=== PATIENT | female | born 1965 | race Caucasian/White ===

== ENCOUNTER 2018-10-07 16:53 | Inpatient (IN) ==
[2018-10-07 17:17] LABS: Baso # (Auto) 0.1 th/mm3 (0.0-0.2); Baso % (Auto) 1.1 % (0.0-2.0); Eos # (Auto) 0.1 th/mm3 (0.0-0.4); Eos % (Auto) 1.2 % (0.0-4.0); Hematocrit 40.2 % (35.0-46.0); Hemoglobin 14.1 gm/dL (11.6-15.3); Lymph # (Auto) 4.2 th/mm3 (1.0-4.8); Lymph % (Auto) 36.9 % (9.0-44.0); Mean Corpuscular Hemoglobin 33.4 pg (27.0-34.0); Mean Corpuscular Volume 95.5 fL (80.0-100.0); Mean Platelet Volume 7.5 fL (7.0-11.0); Mono # (Auto) 0.9 th/mm3 (0.0-0.9); Mono % (Auto) 7.9 % (0.0-8.0); Neut % (Auto) 52.9 % (16.0-70.0); Platelet Count 333 th/mm3 (150-450); Red Blood Count 4.21 mil/mm3 (4.00-5.30); Red Cell Distribution Width 13.6 % (11.6-17.2); White Blood Count 11.3 th/mm3 (4.0-11.0)
[2018-10-07 17:24] LABS: Activated Partial Thrombo Time 25.7 sec (23.4-31.7)
[2018-10-07 17:36] LABS: Alkaline Phosphatase 107 U/L (45-117); Total Protein 7.4 g/dL (6.4-8.2)
[2018-10-07] MEDS ORDERED: Morphine Inj 4 MG/ML Vial IV.PUSH ONE (17:42)
[2018-10-07 17:48] LABS: Amphetamine Screen,Urine Neg (Neg); Barbiturate Screen,Urine Pos (Neg); Bilirubin,Urine Negative (Negative); Cannabinoid Screen,Urine Neg (Neg); Clarity,Urine Clear (Clear); Cocaine Screen,Urine Neg (Neg); Color,Urine Yellow (Yellw/Straw); Glucose,Urine (UA) Negative (Negative); Leukocyte Esterase,Urine Negative (Negative); Mucus,Urine Few /lpf (Occasional); Nitrite,Urine Negative (Negative); Specific Gravity,Urine 1.013 (1.002-1.035); Squamous Epithelial Cell,Urine <1 /hpf (0-5)
[2018-10-07 17:49] LABS: Opiate Screen,Urine Pos (Neg)
[2018-10-07 18:39] LABS: Alanine Aminotransferase 22 U/L (10-53); Albumin 3.1 g/dL (3.4-5.0); Anion Gap 9 meq/L (5-15); Aspartate Aminotransferase 20 U/L (15-37); Blood Urea Nitrogen 10 mg/dL (7-18); Calcium 7.6 mg/dL (8.5-10.1); Carbon Dioxide 23.5 meq/L (21.0-32.0); Chloride 110 meq/L (98-107); Glomerular Filtration Rate 85 mL/min (>89); Glucose,Random 105 mg/dL (74-106); Magnesium 1.6 mg/dL (1.5-2.5); Potassium 3.1 meq/L (3.5-5.1); Sodium 142 meq/L (136-145)
[2018-10-07] MEDS ORDERED: Haloperidol Inj 5 MG/ML Ampul IM ONE (19:25)
--- NOTE | 2018-10-07 20:09 | XR ---
EXAM DATE: 10/07/2018 8:05 PM EST AGE/SEX: 53 years / Female INDICATIONS: Evaluate lung status. Med reaction. CLINICAL DATA: This is the patient's initial encounter. Patient reports that signs and symptoms have been present for 1 day and indicates a pain score of Nonresponsive. MEDICAL/SURGICAL HISTORY: . Gastric bypass. Spinal stimulator. Right wrist ORIF. COMPARISON: No prior exams available for comparison. FINDINGS: A single AP view of the chest demonstrates the lungs to be symmetrically aerated without evidence of mass, infiltrate or effusion. The cardiomediastinal contours are unremarkable. Osseous structures a re intact. CONCLUSION: No acute findings. Spinal stimulator wires overlie lower thoracic canal. Electronically signed by: Abdelrahman Rebolledo MD 10/07/2018 8:08 PM EST
[2018-10-07] MEDS ORDERED: Ketamine Inj 50 MG/5 ML Syringe IV.PUSH ONE (20:42)
[2018-10-07] MEDS ORDERED: Sod Chloride 0.9% Inj 1,000 ML IV.SIG SCH (20:45)
[2018-10-07] MEDS ORDERED: Propofol 1000 mg/100 ml Inj 1,000 MG/100 ML BOTTLE IV.CONT PRN (21:24)
[2018-10-07] MEDS ORDERED: Etomidate Inj 20 MG/10 ML Ampul IV.PUSH ONE ×2 (21:24→22:07)
[2018-10-07] MEDS ORDERED: Succinylcholine Inj 100 MG/5 ML Syringe IV.PUSH ONE (21:24)
[2018-10-07] MEDS ORDERED: Succinylcholine Inj 200 MG/10 ML Vial ONE (21:31)
[2018-10-07] MEDS ORDERED: fentaNYL 10 mcg/mL Premix Drip 2,500 MCG/250 ML BAG ONE (21:50)
[2018-10-07] MEDS ORDERED: fentaNYL 10 mcg/mL Premix Drip 2,500 MCG/250 ML BAG IV.SIG PRN ×2 (21:50→22:39)
[2018-10-07] MEDS ORDERED: Midazolam 100 MG/100 ML Inj 100 MG/100 ML BAG IV.CONT ONE (22:01)
[2018-10-07] MEDS ORDERED: Midazolam 100 MG/100 ML Inj 100 MG/100 ML BAG IV.CONT PRN ×2 (22:07→22:39)
--- NOTE | 2018-10-07 22:26 | ED ---
HPI General Chief complaint: Altered Mental Status Stated complaint: med reaction/evac Time Seen by Provider: 10/07/18 16:56 Source: family and EMS Mode of arrival: EMS Limitations: altered mental status History of Present Illness HPI narrative: Patient is a 53 year old female who comes in by EMS due to altered mental status. Per EMS, she has a morphine pump and was started on a "new diet pill" that she took for the first time today. EMS states that she took the Naltrexone and soon after started to act unlike herself per family. Patient is altered, unable to answer questions or provide history. Per family, patient has multiple adverse reactions to medications. Daughter states she believes mom is withdrawing from opiates due to the Naltrexone. She says she only has a minimal amount of morphine that goes through her pump. Daughter states that her mother took the pill and about an hour later called saying she just didn't feel well. She says she declined from there to the state she is currently in. Related Data Home Medications Medication Instructions Recorded Confirmed ranitidine HCl [Zantac] 150 mg PO DAILY 08/03/18 10/07/18 bupropion HCl 100 mg PO BID 10/07/18 10/07/18 lylducpsho-obqmczyrdroah-ncwr 1 cap PO Q4H PRN 10/07/18 10/07/18 [Fioricet] naltrexone 25 mg PO DAILY 10/07/18 10/07/18 zolpidem 10 mg PO HS PRN 10/07/18 10/07/18 Allergies Allergy/AdvReac Type Severity Reaction Status Date / Time celecoxib Allergy Intermediate MOUTH Verified 10/07/18 20:19 SWELLING Sulfa (Sulfonamide Allergy Intermediate DIZZY Verified 10/07/18 20:19 Antibiotics) Iodinated Contrast- Oral and Allergy Respiratory Verified 10/07/18 20:20 IV Dye Failure Review of Systems ROS Unobtainable ROS Unobtainable: unobtainable due to mental status PMFSH Medical History Medical History Arm fracture, left (Acute) Chronic back pain (Acute) Degenerative disc disease, thoracic (Acute) Sleep apnea (Acute) Surgical History Surgical History H/O gastric bypass (Acute) History of carpal tunnel surgery of left wrist (Acute) Social History Social History Substance History: Unable to Obtain Second Hand Smoke Exposure: No Smoking Status: Unknown if ever smoked How Often Do You Have a Drink Containing Alcohol: Unable to Obtain Recent Travel in [facility] within the Last 8 Weeks: No Recent Out of Country Travel within the Last 8 Weeks: No Immunization History Tetanus Immunization: Unable to Assess Exam Narrative Exam Narrative: GENERAL: Patient is awake, but does not respond to any external stimuli. She is jerking her hands and legs, writhing in the bed. SKIN: Focused skin assessment warm/dry. HEAD: Atraumatic. Normocephalic. EYES: Pupils equal and round, reactive, large. No scleral icterus. EOMI. ENT: Mucous membranes pink and moist. NECK: Trachea midline. No JVD. CARDIOVASCULAR: Regular rate and rhythm. No murmur appreciated. RESPIRATORY: No accessory muscle use. Clear to auscultation. Breath sounds equal bilaterally. GASTROINTESTINAL: Abdomen soft, non-tender, nondistended. MUSCULOSKELETAL: No obvious deformities. No clubbing. No cyanosis. No edema. NEUROLOGICAL: Awake, but does not respond to any painful or verbal stimuli. Moves all of her extremity. Procedures Intubation Time Out Performed: Yes Sedative: etomidate Mg Given: 20 Paralytic: succinylcholine Mg Given: 100 Laryngoscope: Tray ET Tube Size: 8 ET Tube Uncuffed: Yes Tube Secured Depth (cm): 22 Tube Secured Location: lips Tube Placement Confirmation: visualized tube passing through cords, equal breath sounds bilaterally, no breath sounds over epigastrium and confirmation by capnometry Patient Tolerated Procedure: well and no complications Course Initial Documented Vital Signs Temperature 97.8 F 10/07/18 17:00 Pulse Rate 68 10/07/18 17:00 Respiratory Rate 19 10/07/18 17:00 Blood Pressure 186/119 H 10/07/18 17:00 Pulse Oximetry 100 10/07/18 17:00 Last Documented Vital Signs Temperature 97.8 F 10/07/18 17:00 Pulse Rate 68 10/07/18 17:00 Respiratory Rate 32 H 10/07/18 21:40 Blood Pressure 186/119 H 10/07/18 17:00 Pulse Oximetry 99 10/07/18 21:40 Critical Care Time Critical Care Time: Yes Total Critical Care Time: 60 Attestation: Aggregate critical care time was 60 minutes. Time to perform other separately billable procedures was not included in the critical care time. My time did not include minutes spent treating any other patients simultaneously or on activities that did not directly contribute to the patient's treatment. The services I provided to this patient were to treat and/or prevent clinically significant deterioration that could result in: serious illness or I provided critical care services requiring my management, as noted below: Chart data review, documentation time, medication orders and management, vital sign assessments/reviewing monitor data, ordering and reviewing lab tests, ordering and interpreting/reviewing x-rays and diagnostic studies, care of the patient and discussion of the patient with the admitting physicians. Medical Decision Making MDM Narrative Medical decision making narrative: Patient is a 53 year old female who comes in altered. Per family, the only change has been introduction of Naltrexone, which she took one of, a few hours prior to arrival. She has a morphine pain pump that is presumably still delivering morphine. Patient is writhing in bed, will not follow direction or answer questions. Patient given 1mg Ativan, with no improvement of her writhing or mental status. Family insists patient is withdrawing from opiates. Given another 1mg Ativan and 4mg Morphine with no improvement of her mental status or any sedation. Labs sent show no acute abnormalities to explain her current state. I would like to obtain a CT of her head to rule out any intracranial pathology accounting for her altered state, however, patient continues to writhe around on the stretcher. Given 5mg Haldol, 25mg Benadryl. Patient continued to fight restraints in the bed, writhe around. Given 2 mg Versed, again with no sedation. Decision made to intubate the patient as she remains altered and no medications I have given her have helped or allowed for obtaining CT of her head. Patient intubated without incident. Sedation continues to be difficult. Patient on Versed, Fentanyl, Propofol. Admitted to the ICU. Medical Screen Exam Complete: Yes Emergency Medical Condition: Yes Differential Diagnosis Differential Diagnosis: psychosis vs intoxication vs electrolyte abnormalities vs encephalopathy vs ICH Medical Records Medical records reviewed: Yes I reviewed the patient's medical records. Lab Data Lab results reviewed: Yes I reviewed the patient's lab results. Result diagrams: 10/07/18 17:00 10/07/18 18:00 Lab Results 10/07/18 10/07/18 10/07/18 Range/Units 17:00 17:00 17:11 WBC 11.3 H (4.0-11.0) th/mm3 RBC 4.21 (4.00-5.30) mil/mm3 Hgb 14.1 (11.6-15.3) gm/dL Hct 40.2 (35.0-46.0) % MCV 95.5 (80.0-100.0) fL MCH 33.4 (27.0-34.0) pg MCHC 35.0 (32.0-36.0) % RDW 13.6 (11.6-17.2) % Plt Count 333 (150-450) th/mm3 MPV 7.5 (7.0-11.0) fL Neut % (Auto) 52.9 (16.0-70.0) % Lymph % (Auto) 36.9 (9.0-44.0) % [place] % (Auto) 7.9 (0.0-8.0) % Eos % (Auto) 1.2 (0.0-4.0) % Baso % (Auto) 1.1 (0.0-2.0) % Neut # (Auto) 6.0 (1.8-7.7) th/mm3 Lymph # (Auto) 4.2 (1.0-4.8) th/mm3 [place] # (Auto) 0.9 (0.0-0.9) th/mm3 Eos # (Auto) 0.1 (0.0-0.4) th/mm3 Baso # (Auto) 0.1 (0.0-0.2) th/mm3 WBC Differential . Differential Comment Auto diff final PT 10.0 (9.8-11.6) sec INR 1.0 Ratio APTT 25.7 (23.4-31.7) sec Sodium (136-145) meq/L Potassium (3.5-5.1) meq/L Chloride (98-107) meq/L Carbon Dioxide (21.0-32.0) meq/L Anion Gap (5-15) meq/L BUN (7-18) mg/dL Creatinine (0.50-1.00) mg/dL Estimated GFR (>89) mL/min Random Glucose (74-106) mg/dL Calcium (8.5-10.1) mg/dL Magnesium (1.5-2.5) mg/dL Total Bilirubin (0.2-1.0) mg/dL AST (15-37) U/L ALT (10-53) U/L Alkaline Phosphatase (45-117) U/L Ammonia (11-32) mcmol/L Troponin I (0.02-0.05) ng/mL Total Protein (6.4-8.2) g/dL Albumin (3.4-5.0) g/dL Urine Color (Yellw/Straw) Urine Clarity (Clear) Urine pH (5.0-8.5) Ur Specific [place] (1.002-1.035) Urine Protein (Neg-Trace) mg/dL Urine Glucose (UA) (Negative) mg/dL Urine Ketones (Negative) mg/dL Urine Occult Blood (Negative) Urine Nitrate (Negative) Urine Bilirubin (Negative) Urine Urobilinogen (Less than 2) mg/dL Ur Leukocyte Esterase (Negative) Urine WBC (0-5) /hpf Ur Squamous Epith Cells (0-5) /hpf Urine Mucus (Occasional) /lpf Micro UA Comment Ur Microscopic Review Urine Culture Comments Urine Opiates Screen Pos H (Neg) Ur Barbiturates Screen Pos H (Neg) Ur Amphetamines Screen Neg (Neg) U Benzodiazepines Scrn Neg (Neg) Urine Cocaine Screen Neg (Neg) U Cannabinoids Screen Neg (Neg) Serum Alcohol (0-5) mg/dL 10/07/18 10/07/18 10/07/18 Range/Units 17:11 18:00 18:00 WBC (4.0-11.0) th/mm3 RBC (4.00-5.30) mil/mm3 Hgb (11.6-15.3) gm/dL Hct (35.0-46.0) % MCV (80.0-100.0) fL MCH (27.0-34.0) pg MCHC (32.0-36.0) % RDW (11.6-17.2) % Plt Count (150-450) th/mm3 MPV (7.0-11.0) fL Neut % (Auto) (16.0-70.0) % Lymph % (Auto) (9.0-44.0) % [place] % (Auto) (0.0-8.0) % Eos % (Auto) (0.0-4.0) % Baso % (Auto) (0.0-2.0) % Neut # (Auto) (1.8-7.7) th/mm3 Lymph # (Auto) (1.0-4.8) th/mm3 [place] # (Auto) (0.0-0.9) th/mm3 Eos # (Auto) (0.0-0.4) th/mm3 Baso # (Auto) (0.0-0.2) th/mm3 WBC Differential Differential Comment PT (9.8-11.6) sec INR Ratio APTT (23.4-31.7) sec Sodium 142 (136-145) meq/L Potassium 3.1 L (3.5-5.1) meq/L Chloride 110 H (98-107) meq/L Carbon Dioxide 23.5 (21.0-32.0) meq/L Anion Gap 9 (5-15) meq/L BUN 10 (7-18) mg/dL Creatinine 0.72 (0.50-1.00) mg/dL Estimated GFR 85 L (>89) mL/min Random Glucose 105 (74-106) mg/dL Calcium 7.6 L (8.5-10.1) mg/dL Magnesium 1.6 (1.5-2.5) mg/dL Total Bilirubin 0.4 (0.2-1.0) mg/dL AST 20 (15-37) U/L ALT 22 (10-53) U/L Alkaline Phosphatase 107 (45-117) U/L Ammonia 12 (11-32) mcmol/L Troponin I Less than 0.02 L (0.02-0.05) ng/mL Total Protein 7.4 (6.4-8.2) g/dL Albumin 3.1 L (3.4-5.0) g/dL Urine Color Yellow (Yellw/Straw) Urine Clarity Clear (Clear) Urine pH 6.0 (5.0-8.5) Ur Specific [place] 1.013 (1.002-1.035) Urine Protein Negative (Neg-Trace) mg/dL Urine Glucose (UA) Negative (Negative) mg/dL Urine Ketones Negative (Negative) mg/dL Urine Occult Blood Negative (Negative) Urine Nitrate Negative (Negative) Urine Bilirubin Negative (Negative) Urine Urobilinogen Less than 2 (Less than 2) mg/dL Ur Leukocyte Esterase Negative (Negative) Urine WBC Less than 1 (0-5) /hpf Ur Squamous Epith Cells <1 (0-5) /hpf Urine Mucus Few H (Occasional) /lpf Micro UA Comment Culture not ind Ur Microscopic Review Not Reportable Urine Culture Comments Culture not ind Urine Opiates Screen (Neg) Ur Barbiturates Screen (Neg) Ur Amphetamines Screen (Neg) U Benzodiazepines Scrn (Neg) Urine Cocaine Screen (Neg) U Cannabinoids Screen (Neg) Serum Alcohol Less than 3 (0-5) mg/dL Imaging Data Radiologist's impression: Chest X-Ray 10/07/18 17:00 CONCLUSION: No acute findings. Spinal stimulator wires overlie lower thoracic canal. Discharge Plan Discharge Disposition Patient Disposition: ED Admit(ED Internal Use Only) Discharge Condition Condition: Stable Discharge Order Discharge Orders: ED Use Only Admit Order (Routine); Ordered 10/07/18 Ordered By: Keely Simmons Discharge Details Diagnosis: Altered mental status Physicians Team ED Provider: Keely Simmons Primary Care Provider: Alfonzo Aguirre Attending Provider: Iam Linares Discharge Interventions Interventions: Vital Signs Last Done: 10/07/18 17:00 Status ED Status: Admitted Patient
--- NOTE | 2018-10-07 22:34 | XR ---
EXAM DATE: 10/07/2018 10:32 PM EST AGE/SEX: 53 years / Female INDICATIONS: Status post intubation. CLINICAL DATA: This is the patient's subsequent encounter. Patient reports that signs and symptoms h ave been present for 1 day and indicates a pain score of Nonresponsive. MEDICAL/SURGICAL HISTORY: Non-responsive. Non-responsive. COMPARISON: [facility] [place] 1V SINGLE AP, 10/07/2018. . FINDINGS: A single AP view of the chest demonstrates the lungs to be symmetrically aerated without evidence of mass, infiltrate or effusion. Endotracheal tube 2.2 cm above the negrito. Cardiomegaly The cardiomedi astinal contours are unremarkable. Osseous structures are intact. CONCLUSION: Adequate placement of endotracheal tube. Electronically signed by: Lm Dorantes MD 10/07/2018 10:33 PM EST
[2018-10-07] MEDS ORDERED: Butalbital/APAP/Caff 50/325/40 MG Tablet PO PRN (22:38)
[2018-10-07] MEDS ORDERED: Bisacodyl 10 MG Supp RECTAL PRN (22:39)
--- NOTE | 2018-10-07 22:45 | P.HPCC ---
History of Present Illness Primary Care Physician: Alfonzo Aguirre MD History of Present Illness: 53 year old female comes in by EMS due to altered mental status. Per EMS, she has a morphine pump and was started on a "new diet pill" that she took for the first time today. EMS states that she took the Naltrexone and soon after started to act unlike herself per family. The emergency department the patient was altered and unable to provide any history, became combative and was intubated by ED attending for an airway protection. Per family, patient has multiple adverse reactions to medications. Daughter states she believes mom is withdrawing from opiates due to the Naltrexone. She says she only has a minimal amount of morphine that goes through her pump. Daughter states that her mother took the pill and about an hour later called saying she just didn't feel well. She says she declined from there to the state she is currently in. Inpatient Certification: I certify that the inpatient services were ordered in accordance with Medicare regulations governing the order. This includes certification that hospital inpatient services are reasonable and necessary and in the case of services not specified as inpatient-only under 42 CFR 419.22(n), that they are appropriately provided as inpatient services in accordance to with the 2-midnight benchmark under 43 CFR 412.3(e) Estimated Total Length of Stay (Days): 5 Plans for Post Hospital Care: Not yet determined Review of Systems unobtainable due to endotracheal tube PMFSH - History History Provided By: Contracting Analyst / EMT - Medical History Medical History: Medical History (Last Reviewed 10/07/18 @ 22:24 by Keely Simmons MD) Arm fracture, left Chronic back pain Degenerative disc disease, thoracic Sleep apnea - Surgical History Surgical History: Surgical History (Last Reviewed 10/07/18 @ 22:24 by Keely Simmons MD) H/O gastric bypass History of carpal tunnel surgery of left wrist - Tobacco History Second Hand Smoke Exposure: No Smoking Status: Unknown if ever smoked - Alcohol History How Often Do You Have a Drink Containing Alcohol: Unable to Obtain - Substance Use History Substance History: Unable to Obtain - Travel History Recent Travel in the [place] Within the Last 8 Weeks: No Recent Travel Out of the Country Within the Last 8 Weeks: No - Immunization History Tetanus Immunization: Unable to Assess Medications and Allergies Active Medications: Active Medications Bupropion HCl (Wellbutrin Sr) 100 mg PO BID DAVID Propofol (Diprivan 1000 Mg/100 Ml Inj) 1,000 mg in 100 mls @ 3.552 mls/hr IV.CONT TITRATE PRN; Protocol PRN Reason: Per Protocol Last Admin: 10/07/18 22:28 Dose: 5 mcg/kg/min, 3.55 mls/hr Fentanyl (Fentanyl 10 Mcg/Ml Premix Drip) 2,500 mcg in 250 mls @ 5 mls/hr IV.SIG TITRATE PRN; Protocol PRN Reason: Per Protocol Midazolam HCl (Versed Inj) 100 mg in 100 mls @ 2 mls/hr IV.CONT TITRATE PRN; Protocol PRN Reason: See protocol Non-Formulary Medication (Majnhgmvdj-Yrcfcudvuqdrx-Ajop [Fioricet]) 1 cap PO Q4H PRN PRN Reason: Migraine Headache Sodium Chloride (Ns Flush) 2 ml IV.FLUSH PRN PRN PRN Reason: FLUSH AFTER USING IV ACCESS Last Admin: 10/07/18 17:07 Dose: 2 ml Allergies Allergy/AdvReac Type Severity Reaction Status Date / Time celecoxib Allergy Intermediate MOUTH Verified 10/07/18 20:19 SWELLING Sulfa (Sulfonamide Allergy Intermediate DIZZY Verified 10/07/18 20:19 Antibiotics) Iodinated Contrast- Oral and Allergy Respiratory Verified 10/07/18 20:20 IV Dye Failure Home Medications Medication Instructions Recorded Confirmed Type ranitidine HCl [Zantac] 150 mg PO DAILY 08/03/18 10/07/18 History bupropion HCl 100 mg PO BID 10/07/18 10/07/18 History jqkwwnvhdn-fwniufwdhjfrv-lkfs 1 cap PO Q4H PRN 10/07/18 10/07/18 History [Fioricet] naltrexone 25 mg PO DAILY 10/07/18 10/07/18 History zolpidem 10 mg PO HS PRN 10/07/18 10/07/18 History Results - Labs CBC & Chem 7: 10/07/18 17:00 10/07/18 18:00 Labs: Short CBC 10/07/18 Range/Units 17:00 WBC 11.3 H (4.0-11.0) th/mm3 Hgb 14.1 (11.6-15.3) gm/dL Hct 40.2 (35.0-46.0) % Plt Count 333 (150-450) th/mm3 BMP 10/07/18 18:00 Sodium 142 Potassium 3.1 L Chloride 110 H Carbon Dioxide 23.5 BUN 10 Creatinine 0.72 Calcium 7.6 L Cardiac Enzymes 10/07/18 Range/Units 18:00 Troponin I Less than 0.02 L (0.02-0.05) ng/mL Liver Function 10/07/18 Range/Units 18:00 Total Bilirubin 0.4 (0.2-1.0) mg/dL AST 20 (15-37) U/L ALT 22 (10-53) U/L Alkaline Phosphatase 107 (45-117) U/L Albumin 3.1 L (3.4-5.0) g/dL Urine 10/07/18 Range/Units 17:11 Urine Color Yellow (Yellw/Straw) Urine Clarity Clear (Clear) Urine pH 6.0 (5.0-8.5) Ur Specific [place] 1.013 (1.002-1.035) Urine Protein Negative (Neg-Trace) mg/dL Urine Glucose (UA) Negative (Negative) mg/dL - Imaging Impressions Chest X-Ray 10/07/18 17:00 CONCLUSION: No acute findings. Spinal stimulator wires overlie lower thoracic canal. Chest X-Ray 10/07/18 21:44 CONCLUSION: Adequate placement of endotracheal tube. Head CT 10/08/18 00:00 CONCLUSION: No acute intracranial findings. . Exam Vital signs: Vital Signs 10/07/18 17:00 10/07/18 21:40 Temperature 97.8 F Pulse Rate 68 Respiratory Rate 19 32 H Blood Pressure 186/119 H Pulse Oximetry 100 99 Intake & Output 10/07/18 10/07/18 10/08/18 06:59 18:59 06:59 Weight 118.388 kg - Constitutional severe distress, morbidly obese - Routine HEENT Exam Head: Present: normocephalic, atraumatic Eye: Present: PERRL, normal accommodation ENT: Present: mucous membranes moist - Routine Neck Exam Absent: JVD, carotid bruit - Routine Respiratory Exam Present: patient mechanically ventilated. Absent: rales, rhonchi - Routine Cardiovascular Exam Present: RRR, S1, S2 - Routine Abdominal Exam Present: soft, normoactive bowel sounds - Routine Extremities Exam Absent: cyanosis, clubbing - Routine Skin Exam Present: intact. Absent: cyanosis, erythema - Routine Neurological Exam Present: altered mental status, moving all extremities Septic Shock Reassessment Septic shock perfusion: reassessment completed Caprini VTE Risk Assessment Caprini VTE Risk Assessment: Moderate/High Risk (score >= 2) Caprini Risk Assessment Model: Point Value = 1 Point Value = 2 Point Value = 3 Point Value = 5 Age 41-60 Minor surgery BMI > 25 kg/m2 Swollen legs Varicose veins or History of unexplained or recurrent spontaneous Oral contraceptives or hormone replacement Sepsis (< 1 month) Serious lung disease, including pneumonia (< 1 month) Abnormal pulmonary function Acute myocardial infarction Congestive heart failure (< 1 month) History of inflammatory bowel disease Medical patient at bed rest Age 61-74 Arthroscopic surgery Major open surgery (> 45 min) Laparoscopic surgery (> 45 min) Malignancy Confined to bed (> 72 hours) Immobilizing plaster cast Central venous access Age >= 75 History of VTE Family history of VTE Factor V Leiden Prothrombin [id number] Lupus anticoagulant Anticardiolipin antibodies Elevated serum homocysteine Heparin-induced thrombocytopenia Other congenital or acquired thrombophilia Stroke (< 1 month) Elective arthroplasty Hip, pelvis, or leg fracture Acute spinal cord injury (< 1 month) Prophylaxis Regimen: Total Risk Factor Score Risk Level Prophylaxis Regimen 0-1 Low Early ambulation 2 Moderate Order ONE of the following: *Sequential Compression Device (SCD) *Heparin 5000 units SQ BID 3-4 Higher Order ONE of the following medications: *Heparin 5000 units SQ TID *Enoxaparin/Lovenox 40 mg SQ daily (WT < 150 kg, CrCl > 30 mL/min) *Enoxaparin/Lovenox 30 mg SQ daily (WT < 150 kg, CrCl > 10-29 mL/min) *Enoxaparin/Lovenox 30 mg SQ BID (WT < 150 kg, CrCl > 30 mL/min) AND/OR *Sequential Compression Device (SCD) 5 or more Highest Order ONE of the following medications: *Heparin 5000 units SQ TID (Preferred with Epidurals) *Enoxaparin/Lovenox 40 mg SQ daily (WT < 150 kg, CrCl > 30 mL/min) *Enoxaparin/Lovenox 30 mg SQ daily (WT < 150 kg, CrCl > 10-29 mL/min) *Enoxaparin/Lovenox 30 mg SQ BID (WT < 150 kg, CrCl > 30 mL/min) AND *Sequential Compression Device (SCD) Assessment and Plan - Assessment and Plan Plan: Respiratory failure -Intubated for airway protection -SBT daily extubated and neurologically improved -Vent bundle -DuoNeb's as needed Altered mental status -CT head negative -Possible reaction to new medication naltrexone -Neuro checks per unit protocol -Consider neurology consultation if no improvement Opioid dependence -Continue fentanyl drip -Continue morphine pump per home regimen -Monitor for withdrawal Sleep apnea -Not an issue while intubated -CPAP overnight when extubated DVT GI prophylaxis -Teds SCDs -Subcu heparin -Pepcid 35 minutes of critical care
[2018-10-07 22:56] LABS: ABG Base Excess -4.4 mmol/L (-2-2); ABG PCO2 30 mmHg (38-42); ABG PO2 74 mmHg (61-120)
[2018-10-07] MEDS: Heparin - SQ 10,000 UNITS/ML Vial SQ SCH (23:26)
[2018-10-07] MEDS: Sod Chloride 0.9% Inj 1,000 ML IV.CONT SCH (23:28)
[2018-10-07 23:45] LABS: ABG Base Excess 1.5 mmol/L (-2-2); ABG PCO2 32 mmHg (38-42); ABG PO2 182 mmHg (61-120)
--- NOTE | 2018-10-08 00:21 | CT ---
EXAM DATE: 10/08/2018 12:11 AM EST AGE/SEX: 53 years / Female INDICATIONS: Altered mental status. CLINICAL DATA: This is the patient's initial encounter. Patient reports that signs and symptoms have been present for 1 day and indicates a pain score of Nonresponsive. MEDICAL/SURGICAL HISTORY: Seizures. None. RADIATION DOSE: 56.35 CTDI (mGy) COMPARISON: No prior exams available for comparison. TECHNIQUE: CT of the head without contrast. Using automated exposure control and adjustment of the mA and/or kV according to patient size, radiation dose was kept as low as reasonably achievable to ob tain optimal diagnostic quality images. DICOM format image data is available electronically for revi ew and comparison. FINDINGS: Cerebrum: The ventricles are normal for age. No evidence of midline shift, mass lesion, hemorrhage or acute infarction. No extraaxial fluid collections are seen. Posterior Fossa: The cerebellum and brainstem are intact. The 4th ventricle is midline. The cerebe llopontine angle is unremarkable. Extracranial: Mild mucosal thickening of the ethmoid sinuses. Skull: The calvaria is intact. No evidence of skull fracture. Chronic appearing bone defect in the right mastoid region. CONCLUSION: No acute intracranial findings. . Electronically signed by: Satnam Almanza MD 10/08/2018 12:19 AM EST
[2018-10-08] MEDS ORDERED: Sodium Phosphate Inj 30 MMOL in Sodium Chlor 0.9% Inj 250 ML IV.SIG PRN (01:17)
[2018-10-08] MEDS ORDERED: Potassium Phosphate Inj 30 MMOL in Sodium Chlor 0.9% Inj 250 ML IV.SIG PRN (01:17)
[2018-10-08] MEDS ORDERED: Magnesium Oxide 400 MG Tablet PO PRN (01:17)
[2018-10-08] MEDS ORDERED: Potassium Chlor 20 mEq Premix 20 MEQ/100 ML PIGGYBACK IV.SIG PRN (01:17)
[2018-10-08] MEDS ORDERED: Potassium Phosphate 500 MG Soluble Tablet PO PRN ×2 (01:17)
[2018-10-08] MEDS ORDERED: Potassium Chloride 25 MEQ Effervescent Tablet PO PRN (01:17)
[2018-10-08] MEDS ORDERED: Magnesium Sulfate Inj 2 GM in Sodium Chlor 0.9% Inj 96 ML IV.SIG PRN (01:17)
[2018-10-08] MEDS ORDERED: Magnesium Sulfate Inj 4 GM in Sodium Chlor 0.9% Inj 92 ML IV.SIG PRN (01:17)
[2018-10-08] MEDS ORDERED: Potassium Chlor 40 mEq Premix 40 MEQ/100 ML PIGGYBACK IV.SIG PRN ×2 (01:17)
[2018-10-08] MEDS: Oral Hygiene Kit OROPHARYNG SCH ×4 (01:18→19:43)
[2018-10-08] MEDS: Propofol 1000 mg/100 ml Inj 1,000 MG/100 ML BOTTLE IV.CONT PRN ×5 (01:44→17:09)
[2018-10-08] MEDS: Potassium Chlor 20 mEq Premix 20 MEQ/100 ML PIGGYBACK IV.SIG PRN ×4 (01:45→08:22)
[2018-10-08] MEDS ORDERED: Chlorhexidine Gluconate 2% 1 Pack (2 Cloths) TOPICAL PRN (04:00)
[2018-10-08] MEDS: Chlorhexidine Gluconate 2% 1 Pack (2 Cloths) TOPICAL SCH (05:23)
[2018-10-08] MEDS: Heparin - SQ 10,000 UNITS/ML Vial SQ SCH ×3 (05:24→22:14)
[2018-10-08] MEDS ORDERED: Dextrose 50% in Water 50 ML Vial IV.PUSH PRN (07:16)
--- NOTE | 2018-10-08 07:19 | P.PNCC ---
Subjective Subjective Remarks/Hospital Course: 53 year old female comes in by EMS due to altered mental status. Per EMS, she has a morphine pump and was started on a "new diet pill" that she took for the first time today. EMS states that she took the Naltrexone and soon after started to act unlike herself per family. The emergency department the patient was altered and unable to provide any history, became combative and was intubated by ED attending for an airway protection. Per family, patient has multiple adverse reactions to medications. Daughter states she believes mom is withdrawing from opiates due to the Naltrexone. She says she only has a minimal amount of morphine that goes through her pump. Daughter states that her mother took the pill and about an hour later called saying she just didn't feel well. She says she declined from there to the state she is currently in. SUBJECTIVE: 10/08: Patient seen and examined. Currently on propofol drip at 50 mcg/kg/min, midazolam drip at 10 mg an hour and fentanyl drip at 100 mg an hour. Withdraws only on the ventilator. Pupils do react. Will attempt sedation vacation same. In interim. Initiate tube feeding will check EEG. Noted CT brain negative. Unable to do MRI brain secondary to spinal stimulator wires Objective Vital Signs / I&O: Vital Signs 10/07/18 17:00 10/07/18 20:00 10/07/18 21:40 Temperature 97.8 F Pulse Rate 68 Respiratory Rate 19 32 H Blood Pressure 186/119 H Pulse Oximetry 100 100 99 10/07/18 22:40 10/07/18 23:39 10/08/18 00:00 Temperature Pulse Rate 82 82 Respiratory Rate 16 16 Blood Pressure 118/71 152/69 H Pulse Oximetry 100 10/08/18 00:20 10/08/18 00:21 10/08/18 00:28 Temperature 100 F H Pulse Rate 82 76 Respiratory Rate 26 H 29 H 41 H Blood Pressure 169/72 H Pulse Oximetry 98 99 10/08/18 00:30 10/08/18 01:00 10/08/18 01:30 Temperature Pulse Rate 76 80 74 Respiratory Rate 31 H 26 H 27 H Blood Pressure 170/73 H 152/73 H 153/88 H Pulse Oximetry 100 100 100 10/08/18 02:00 10/08/18 02:30 10/08/18 03:00 Temperature Pulse Rate 77 79 79 Respiratory Rate 26 H 26 H 24 Blood Pressure 152/70 H 143/72 H 159/73 H Pulse Oximetry 100 100 100 10/08/18 03:30 10/08/18 04:00 10/08/18 04:30 Temperature Pulse Rate 82 82 Respiratory Rate 28 H 28 H 20 Blood Pressure 156/75 H 168/75 H Pulse Oximetry 100 100 100 10/08/18 04:31 10/08/18 05:00 10/08/18 05:01 Temperature Pulse Rate 79 81 86 Respiratory Rate 35 H 35 H 37 H Blood Pressure 185/75 H 160/73 H Pulse Oximetry 100 98 100 10/08/18 05:30 10/08/18 06:00 Temperature Pulse Rate 84 85 Respiratory Rate 31 H 26 H Blood Pressure 168/77 H 159/77 H Pulse Oximetry 96 100 Intake & Output 10/07/18 10/08/18 10/08/18 18:59 06:59 18:59 Intake Total 1500 / 1500 Output Total 2600 / 2600 Balance -1100 / -1100 Weight 118.388 kg 108.6 kg Intake: IV 1500 / 1500 Diprivan 1000 mg/100 ml Inj 1, 300 / 300 000 mg In 100 ml @ 5 MCG/KG/MIN 3.552 mls/hr IV.CONT TITRATE PRN Rx#:[id number] KCl 20 mEq Premix Inj 20 meq In 200 / 200 100 ml @ 50 mls/hr IV.SIG Q2H PRN Rx#:[id number] NS Inj 1,000 ML @ 1000 mls/hr 1000 / 1000 IV.SIG BOLUS DAVID Rx#:[id number] Oral 0 / 0 Output: Urine Amount (Catheter) 2600 / 2600 Indwelling Urethral Catheter 2600 / 2600 Other: Date of Last Bowel Movement 10/08/18 Weight On Admission 102.5 kg Result Diagrams: 10/07/18 17:00 10/07/18 18:00 Imaging: Chest X-Ray 10/07/18 17:00 CONCLUSION: No acute findings. Spinal stimulator wires overlie lower thoracic canal. Chest X-Ray 10/07/18 21:44 CONCLUSION: Adequate placement of endotracheal tube. Head CT 10/08/18 00:00 CONCLUSION: No acute intracranial findings. . Objective Remarks: GENERAL: 53-year-old female currently orotracheally intubated SKIN: Warm and dry. No rash HEAD: Atraumatic. Normocephalic. EYES: Pupils equal and round. No scleral icterus. No injection or drainage. ENT: No nasal bleeding or discharge. Mucous membranes pink and moist. NECK: Trachea midline. No JVD. CARDIOVASCULAR: Regular rate and rhythm. S1, S2. No S4. RESPIRATORY: Diminished breath sounds throughout. No wheezing GASTROINTESTINAL: Abdomen soft, non-tender, obese. Hypoactive bowel sounds appreciated. MUSCULOSKELETAL: Extremities without nonpitting bilateral lower extremity edema. No obvious deformities. NEUROLOGICAL: Currently sedated on the ventilator. Positive gag and cough. Positive corneal reflex. Withdraws to pain all 4 extremity's. Assessment and Plan - Assessment and Plan Plan: Neuro/Psych: Acute encephalopathy unknown etiology Depression/anxiety Insomnia Migraine headaches Spinal stimulator/morphine pump for chronic thoracic DDD/low back pain Patient has a morphine pump in place Patient is on naltrexone 20 mg daily at home.. This is Patient is on bupropion 100 mg twice daily. Continue. Patient is on butalbital/acetaminophen/caffeine 1 tablet every 4 hours as needed Holding zolpidem 10 mg at night for insomnia. CT brain on admission revealed no acute intracranial findings CV: Essential hypertension Initial troponin 0.02. EKG unremarkable As needed labetalol, hydralazine Nitropaste for hypertension Resp: Acute respiratory failure Obstructive sleep apnea PRVC Ventilation bundle Head of bed at 30 degrees Albuterol/ipratropium aerosols every 4 hours with albuterol aerosols every 2 as needed dyspnea Follow-up on a.m. chest x-ray Spontaneous breathing trial/CPAP trials when clinically indicated Chest x-ray cardiopulmonary findings GI: History of gastric bypass Gastroesophageal reflux disease Will start tube feedings with vital 1.5 goal 55 cc an hour Lansoprazole for GI prophylaxis. Patient is on ranitidine 150 mg daily at home Docusate serum/senna 1 tablet twice daily for bowel regimen : Straight catheterization as needed. Okay to remove Olivas catheter. Periwick might be an alternative Endo: Check TSH Aspart low regimen every 6 hours sliding scale insulin Accu-Cheks to maintain euglycemia Renal: Creatinine currently within normal limits Monitor urine output Accurate I's and O's Heme: Leukocytosis Monitor CBC daily. Follow trends. No indication for transfusion of blood products at this time ID: Blood cultures x2, sputum and UA pending. Influenza a and B pending FEN: Hypokalemia/acute Replace electrolytes as clinically indicated per ICU likely protocol Recheck a.m. laboratories all pending MSK: Chronic low back pain Elevated BMI of 39.9 PT evaluate and treat Weight loss encouraged Access -Utilize peripheral IV. Central line if indicated Prophylaxis -GI -lansoprazole -DVT -SCD/heparin subcu Level 3 follow-up Code Status: Full code Discussed Condition With: RN. No family available. Care plan discussed all questions answered
[2018-10-08] MEDS ORDERED: Labetalol HCl Inj 100 MG/20 ML Vial IV.PUSH PRN (07:26)
[2018-10-08] MEDS ORDERED: hydrALAZINE HCl Inj 20 MG/ML Vial IV.PUSH PRN (07:27)
[2018-10-08 08:11] LABS: Baso % (Auto) 0.5 % (0.0-2.0); Eos # (Auto) 0.1 th/mm3 (0.0-0.4); Hematocrit 40.7 % (35.0-46.0); Hemoglobin 13.7 gm/dL (11.6-15.3); Lymph # (Auto) 2.3 th/mm3 (1.0-4.8); Lymph % (Auto) 22.4 % (9.0-44.0); Mean Corpuscular HGB Conc 33.6 % (32.0-36.0); Mean Corpuscular Hemoglobin 31.8 pg (27.0-34.0); Mean Corpuscular Volume 94.6 fL (80.0-100.0); Mean Platelet Volume 7.2 fL (7.0-11.0); Mono # (Auto) 0.9 th/mm3 (0.0-0.9); Mono % (Auto) 8.4 % (0.0-8.0); Neut # (Auto) 7.1 th/mm3 (1.8-7.7); Neut % (Auto) 67.7 % (16.0-70.0); Platelet Count 284 th/mm3 (150-450); White Blood Count 10.4 th/mm3 (4.0-11.0)
[2018-10-08] MEDS: Senna/Docusate Sodium 8.6/50 MG Tablet PO SCH ×2 (08:20→20:03)
[2018-10-08] MEDS: Artificial Tears Opth Drops 15 ML Bottle EACH EYE SCH ×2 (08:20→19:44)
[2018-10-08] MEDS: buPROPion 100 MG ER 12 HR Tablet PO SCH ×2 (08:20→20:04)
[2018-10-08 08:21] LABS: Activated Partial Thrombo Time 27.6 sec (23.4-31.7); Prothrombin Time 10.6 sec (9.8-11.6)
[2018-10-08] MEDS: Chlorhexidine 0.12% Oral Kit 15 ML UDC OROPHARYNG SCH ×2 (08:21→20:03)
[2018-10-08 08:43] LABS: Alanine Aminotransferase 27 U/L (10-53); Albumin 3.1 g/dL (3.4-5.0); Alkaline Phosphatase 104 U/L (45-117); Anion Gap 8 meq/L (5-15); Aspartate Aminotransferase 37 U/L (15-37); Blood Urea Nitrogen 5 mg/dL (7-18); Calcium 8.5 mg/dL (8.5-10.1); Carbon Dioxide 25.8 meq/L (21.0-32.0); Chloride 109 meq/L (98-107); Glomerular Filtration Rate 80 mL/min (>89); Glucose,Random 92 mg/dL (74-106); Magnesium 1.9 mg/dL (1.5-2.5); Phosphorus 2.3 mg/dL (2.5-4.9); Potassium 3.9 meq/L (3.5-5.1); Sodium 143 meq/L (136-145); Total Protein 6.6 g/dL (6.4-8.2)
[2018-10-08] MEDS ORDERED: Famotidine PF Inj 20 MG/2 ML Vial IV.PUSH SCH (09:00)
[2018-10-08] MEDS: Insulin NovoLOG Aspart Correctional Sugar Inj SQ SCH ×2 (12:03→19:43)
--- NOTE | 2018-10-08 16:02 | P.DIET ---
Nutritional Evaluation Type of nutrition evaluation: initial Nutrition consult regarding: Tube Feeding Screening comments: 10/08 TF review Objective - Diagnosis AMS - Objective Body Mass Index: 39.9 % IBW: 191 (IBW = 125lb) Body Weight Used for Calculations: IBW Energy Needs - Lower Range (kCal/kg): 28 Energy Needs - Upper Range (kCal/kg): 32 Lower Limit kCal/kg (kCals): 1,591 Upper Limit kCal/kg (kCals): 1,818 Lower Limit Protein Factor (Grams per Kg): 1.2 Upper Limit Protein Factor (Grams per Kg): 1.4 Lower Protein Needs (Protein): 68 Upper Protein Needs (Protein): 80 Dietitian Reviewed in Medical Record: Curent medications, Intake & Output, Labs , Medical history, Tube feeding Diet Order: TF'ing Objective Comments: PMH: degenerative disc disease, h/o gastric bypass, ORIF left distal radius 03/14 Meds: fentanyl, novolog insulin, versed, propofol Labs: Phos 2.3 LBM 10/08 Assessment Assessment: Pt currently intubated, sedated (w/ fentanyl, versed, propofol), and on mech vent. Pt currently receiving Vital 1.5 @ 55mL/hr per MD. RD to recommend Vital 1.5 @ 50mL/hr to provide 1800kcal, 81g of protein, 917mL of free water to best meet pts nutritional needs. Additional kcal (1.1kcal/mL) provided by propofol when running. Continue to monitor TF tolerance. Labs reviewed, dietitian following. Recommendations: 1. RD to recommend Vital 1.5 @ 50mL/hr to best meet pts nutritional needs 2. Additional kcal (1.1kcal/mL) provided by propofol when running 3. Continue to monitor TF tolerance 4. Dietitian following Dietitian to Monitor: Lab values, Intake & Output, Tube feeding tolerance, Medical course
--- NOTE | 2018-10-08 17:52 | MG ---
cc: Gurdeep Graf MD EEG NUMBER: [id number] This is a 53-year-old woman with change in mental status. Morphine pump, chronic back pain, fentanyl, Diprivan. Diffuse beta rhythms are noted consistent with benzodiazepine use. They are prominent in bilateral. No hemisphere asymmetries are noted. Some underlying delta slowing may be seen diffusely. No epileptiform or seizure activity is noted. Hyperventilation not performed. Photic stimulation is performed without significant posterior driving. IMPRESSION: Diffuse beta rhythms which would be consistent with likely medication effect. No focal abnormalities noted. No seizure activity. Gurdeep Graf MD DJM/ct , 05:16 PM , 05:20 PM
[2018-10-08] MEDS: Acetaminophen 325 MG Tablet PO PRN (20:04)
[2018-10-08] MEDS: Sod Chloride 0.9% Inj 1,000 ML IV.CONT SCH ×2 (20:40→22:14)
--- NOTE | 2018-10-08 22:08 | ECG ---
Date Performed: 10/07/2018 Time Performed: 22:56:06 PTAGE: 53 years EKG: Sinus rhythm NORMAL ECG PREVIOUS TRACING : 07/29/2012 09.20 Since the previous tracing, no significant change noted DOCTOR: Sunil Beltran Interpretating Date/Time 10/08/2018 22:07:06
[2018-10-09] MEDS: Oral Hygiene Kit OROPHARYNG SCH ×5 (00:14→23:41)
[2018-10-09] MEDS: Insulin NovoLOG Aspart Correctional Sugar Inj SQ SCH ×5 (00:14→23:41)
[2018-10-09] MEDS: Artificial Tears Opth Drops 15 ML Bottle EACH EYE SCH ×3 (00:14→17:12)
[2018-10-09] MEDS: Propofol 1000 mg/100 ml Inj 1,000 MG/100 ML BOTTLE IV.CONT PRN ×3 (01:07→23:59)
[2018-10-09] MEDS: Chlorhexidine Gluconate 2% 1 Pack (2 Cloths) TOPICAL SCH (04:06)
[2018-10-09] MEDS: Acetaminophen 325 MG Tablet PO PRN (04:06)
--- NOTE | 2018-10-09 05:04 | XR ---
EXAM DATE: 10/09/2018 4:43 AM EST AGE/SEX: 53 years / Female INDICATIONS: Shortness of breath, possible pulmonary disease. CLINICAL DATA: This is the patient's subsequent encounter. Patient reports that signs and symptoms h ave been present for 3 days and indicates a pain score of Nonresponsive. MEDICAL/SURGICAL HISTORY: Non-responsive. Non-responsive. COMPARISON: C, CHEST 1V SINGLE AP, 10/07/2018. . FINDINGS: Single AP view the chest. Endotracheal tube remains in place. Nasogastric tube is now seen with the t ip below the [id number] of the radiograph. Neural stimulator leads are seen in the thoracic spine. Central pulmonary vascular congestion. Mild atelectasis at the lung bases. CONCLUSION: 1. Central pulmonary vascular congestion and mild bilateral atelectasis. 2. Nasogastric tube now in place. Electronically signed by: Satnam Almanza MD 10/09/2018 5:02 AM EST
[2018-10-09] MEDS: Heparin - SQ 10,000 UNITS/ML Vial SQ SCH ×3 (05:25→21:52)
[2018-10-09 07:03] LABS: Baso % (Auto) 0.1 % (0.0-2.0); Eos % (Auto) 0.4 % (0.0-4.0); Hematocrit 39.7 % (35.0-46.0); Hemoglobin 13.6 gm/dL (11.6-15.3); Lymph # (Auto) 1.5 th/mm3 (1.0-4.8); Lymph % (Auto) 11.5 % (9.0-44.0); Mean Corpuscular HGB Conc 34.3 % (32.0-36.0); Mean Corpuscular Hemoglobin 32.2 pg (27.0-34.0); Mean Corpuscular Volume 93.7 fL (80.0-100.0); Mean Platelet Volume 7.9 fL (7.0-11.0); Mono % (Auto) 7.5 % (0.0-8.0); Neut # (Auto) 10.7 th/mm3 (1.8-7.7); Neut % (Auto) 80.5 % (16.0-70.0); Platelet Count 251 th/mm3 (150-450); Red Blood Count 4.23 mil/mm3 (4.00-5.30); Red Cell Distribution Width 13.6 % (11.6-17.2); White Blood Count 13.3 th/mm3 (4.0-11.0)
[2018-10-09 07:34] LABS: Albumin 2.6 g/dL (3.4-5.0); Anion Gap 7 meq/L (5-15); Aspartate Aminotransferase 27 U/L (15-37); Blood Urea Nitrogen 6 mg/dL (7-18); Calcium 7.9 mg/dL (8.5-10.1); Chloride 110 meq/L (98-107); Glomerular Filtration Rate 86 mL/min (>89); Glucose,Random 137 mg/dL (74-106); Magnesium 1.9 mg/dL (1.5-2.5); Potassium 3.6 meq/L (3.5-5.1); Sodium 143 meq/L (136-145)
[2018-10-09 07:46] LABS: Alanine Aminotransferase 23 U/L (10-53); Alkaline Phosphatase 96 U/L (45-117); Phosphorus 3.3 mg/dL (2.5-4.9); Thyroid Stimulating Hormone 0.493 uIU/mL (0.358-3.740); Total Protein 6.4 g/dL (6.4-8.2)
[2018-10-09] MEDS: Sod Chloride 0.9% Inj 1,000 ML IV.CONT SCH ×3 (08:00→21:52)
[2018-10-09] MEDS: Senna/Docusate Sodium 8.6/50 MG Tablet PO SCH ×2 (08:01→20:15)
[2018-10-09] MEDS: buPROPion 100 MG ER 12 HR Tablet PO SCH ×2 (08:01→20:15)
[2018-10-09] MEDS: Chlorhexidine 0.12% Oral Kit 15 ML UDC OROPHARYNG SCH ×2 (08:01→20:15)
[2018-10-09] MEDS ORDERED: Mag Sulf 1 gm/100 ml Premix 100 ML IV.SIG ONE (09:00)
[2018-10-09] MEDS ORDERED: Vancomycin Consult Pharmacy OTHER PRN (09:00)
--- NOTE | 2018-10-09 09:09 | P.PNCC ---
Subjective Subjective Remarks/Hospital Course: 53 year old female comes in by EMS due to altered mental status. Per EMS, she has a morphine pump and was started on a "new diet pill" that she took for the first time today. EMS states that she took the Naltrexone and soon after started to act unlike herself per family. The emergency department the patient was altered and unable to provide any history, became combative and was intubated by ED attending for an airway protection. Per family, patient has multiple adverse reactions to medications. Daughter states she believes mom is withdrawing from opiates due to the Naltrexone. She says she only has a minimal amount of morphine that goes through her pump. Daughter states that her mother took the pill and about an hour later called saying she just didn't feel well. She says she declined from there to the state she is currently in. 10/08: Patient seen and examined. Currently on propofol drip at 50 mcg/kg/min, midazolam drip at 10 mg an hour and fentanyl drip at 100 mg an hour. Withdraws only on the ventilator. Pupils do react. Will attempt sedation vacation same. In interim. Initiate tube feeding will check EEG. Noted CT brain negative. Unable to do MRI brain secondary to spinal stimulator wires SUBJECTIVE: 10/09: T-max 102.4. Creatinine 1.8. Copious thick secretions awake today and following commands. Will try spontaneous breathing trials with attempt extubate.. Start of piperacillin/tazobactam and vancomycin Objective Vital Signs / I&O: Vital Signs 10/08/18 09:00 10/08/18 09:39 10/08/18 10:00 Temperature Pulse Rate 85 80 82 Respiratory Rate 16 16 21 Blood Pressure 144/73 H 147/82 H 158/74 H Pulse Oximetry 100 100 100 10/08/18 10:30 10/08/18 11:00 10/08/18 12:00 Temperature Pulse Rate 84 79 82 Respiratory Rate 25 H 22 16 Blood Pressure 155/88 H 164/68 H 134/81 Pulse Oximetry 100 100 100 10/08/18 12:06 10/08/18 12:08 10/08/18 12:30 Temperature 99.4 F Pulse Rate 84 83 Respiratory Rate 16 16 Blood Pressure 141/79 H Pulse Oximetry 100 100 10/08/18 13:00 10/08/18 13:30 10/08/18 14:00 Temperature Pulse Rate 87 80 79 Respiratory Rate 24 16 16 Blood Pressure 152/73 H 150/82 H 145/67 H Pulse Oximetry 100 100 100 10/08/18 14:30 10/08/18 15:00 10/08/18 15:30 Temperature Pulse Rate 81 80 73 Respiratory Rate 21 16 16 Blood Pressure 147/80 H 150/75 H 143/69 H Pulse Oximetry 100 100 100 10/08/18 16:00 10/08/18 16:06 10/08/18 16:30 Temperature Pulse Rate 79 94 H Respiratory Rate 16 16 20 Blood Pressure 150/67 H 144/75 H Pulse Oximetry 100 100 100 10/08/18 17:00 10/08/18 17:14 10/08/18 17:30 Temperature Pulse Rate 87 83 90 Respiratory Rate 21 21 Blood Pressure 145/69 H 154/76 H Pulse Oximetry 100 100 10/08/18 18:00 10/08/18 18:30 10/08/18 19:00 Temperature Pulse Rate 83 85 79 Respiratory Rate 17 20 23 Blood Pressure 145/83 H 148/65 H 150/75 H Pulse Oximetry 100 100 100 10/08/18 19:30 10/08/18 20:00 10/08/18 20:30 Temperature 102.4 F H Pulse Rate 95 H 88 96 H Respiratory Rate 31 H 18 21 Blood Pressure 147/67 H 149/70 H 135/70 Pulse Oximetry 100 100 100 10/08/18 20:45 10/08/18 20:53 10/08/18 21:00 Temperature Pulse Rate 98 H 99 H Respiratory Rate 16 16 17 Blood Pressure 125/63 Pulse Oximetry 100 99 10/08/18 21:30 10/08/18 22:00 10/08/18 22:30 Temperature Pulse Rate 100 H 83 90 Respiratory Rate 17 16 17 Blood Pressure 135/68 138/69 137/76 Pulse Oximetry 100 100 100 10/08/18 23:00 10/08/18 23:30 10/08/18 23:57 Temperature Pulse Rate 79 77 74 Respiratory Rate 16 16 16 Blood Pressure 147/70 H 144/70 H Pulse Oximetry 100 100 10/09/18 00:00 10/09/18 00:14 10/09/18 00:30 Temperature 100.9 F H Pulse Rate 75 97 H Respiratory Rate 16 16 21 Blood Pressure 151/67 H 145/81 H Pulse Oximetry 100 100 100 10/09/18 01:00 10/09/18 01:30 10/09/18 02:00 Temperature Pulse Rate 103 H 92 H 89 Respiratory Rate 31 H 24 17 Blood Pressure 148/73 H 141/71 H 135/75 Pulse Oximetry 82 L 100 100 10/09/18 02:30 10/09/18 03:00 10/09/18 03:30 Temperature Pulse Rate 80 87 79 Respiratory Rate 17 17 16 Blood Pressure 145/66 H 140/85 145/69 H Pulse Oximetry 100 100 100 10/09/18 04:00 10/09/18 04:18 10/09/18 04:19 Temperature 101.8 F H Pulse Rate 81 84 Respiratory Rate 16 20 20 Blood Pressure 147/67 H Pulse Oximetry 100 100 10/09/18 04:30 10/09/18 05:00 10/09/18 05:30 Temperature Pulse Rate 89 84 85 Respiratory Rate 24 16 17 Blood Pressure 133/80 136/64 136/65 Pulse Oximetry 100 100 100 10/09/18 06:00 10/09/18 07:00 10/09/18 07:30 Temperature 99.8 F H Pulse Rate 83 82 88 Respiratory Rate 18 16 17 Blood Pressure 131/81 147/65 H 139/71 Pulse Oximetry 100 99 100 10/09/18 08:00 10/09/18 08:24 10/09/18 08:30 Temperature Pulse Rate 84 87 85 Respiratory Rate 16 12 14 Blood Pressure 136/65 140/65 Pulse Oximetry 100 100 100 Intake & Output 10/08/18 10/09/18 10/09/18 18:59 06:59 18:59 Intake Total 400 / 400 2038 / 2038 1000 / 1000 Output Total 1400 / 1400 1100 / 1100 Balance -1000 / -1000 938 / 938 1000 / 1000 Weight 108.8 kg Intake: IV 400 / 400 1260 / 1260 1000 / 1000 Versed Inj 100 mg In 100 ml @ 2 10 / 10 MG/HR 2 mls/hr IV.CONT TITRATE PRN Rx#:[id number] Diprivan 1000 mg/100 ml Inj 1, 200 / 200 100 / 100 000 mg In 100 ml @ 5 MCG/KG/MIN 3.552 mls/hr IV.CONT TITRATE PRN Rx#:[id number] NS Inj 1,000 ML @ 84 mls/hr IV. 1000 / 1000 1000 / 1000 CONT .[id number] [facility] Rx#:[id number] KCl 20 mEq Premix Inj 20 meq In 200 / 200 100 ml @ 50 mls/hr IV.SIG Q2H PRN Rx#:[id number] fentaNYL 10 mcg/mL Premix Drip 100 / 100 2,500 mcg In 250 ml @ 50 MCG/HR 5 mls/hr IV.SIG TITRATE PRN Rx #:[id number] Tube Feeding 578 / 578 Tube Irrigant 200 / 200 Output: Urine Amount (Catheter) 1400 / 1400 1100 / 1100 Indwelling Urethral Catheter 1400 / 1400 1100 / 1100 Other: Date of Last Bowel Movement 10/08/18 10/09/18 # Bowel Movements 1 Result Diagrams: 10/09/18 06:03 10/09/18 06:03 Other Results: Microbiology 10/08/18 08:40 Nasal Aspirate Influenza Types A,B Antigen - Final Negative for FLU A and B antigen Infection due to influenza A or B cannot be ruled out since the antigen present in the sample may be below the detection limit of the test. Imaging: Chest X-Ray 10/07/18 17:00 CONCLUSION: No acute findings. Spinal stimulator wires overlie lower thoracic canal. Chest X-Ray 10/07/18 21:44 CONCLUSION: Adequate placement of endotracheal tube. Head CT 10/08/18 00:00 CONCLUSION: No acute intracranial findings. . Chest X-Ray 10/09/18 06:00 CONCLUSION: 1. Central pulmonary vascular congestion and mild bilateral atelectasis. 2. Nasogastric tube now in place. Objective Remarks: GENERAL: 53-year-old female currently orotracheally intubated SKIN: Warm and dry. No rash HEAD: Atraumatic. Normocephalic. EYES: Pupils equal and round. No scleral icterus. No injection or drainage. ENT: No nasal bleeding or discharge. Mucous membranes pink and moist. NECK: Trachea midline. No JVD. CARDIOVASCULAR: Regular rate and rhythm. S1, S2. No S4. RESPIRATORY: Diminished breath sounds throughout. No wheezing GASTROINTESTINAL: Abdomen soft, non-tender, obese. Hypoactive bowel sounds appreciated. MUSCULOSKELETAL: Extremities without nonpitting bilateral lower extremity edema. No obvious deformities. NEUROLOGICAL: Currently arousable on the ventilator. Positive gag and cough. Positive corneal reflex. Withdraws to pain all 4 extremity's. Assessment and Plan - Assessment and Plan Plan: Neuro/Psych: Acute encephalopathy unknown etiology Depression/anxiety Insomnia Migraine headaches Spinal stimulator/morphine pump for chronic thoracic DDD/low back pain Patient has a morphine pump in place Patient is on naltrexone 20 mg daily at home.. This is Patient is on bupropion 100 mg twice daily. Continue. Patient is on butalbital/acetaminophen/caffeine 1 tablet every 4 hours as needed Holding zolpidem 10 mg at night for insomnia. CT brain on admission revealed no acute intracranial findings Weaning off fentanyl and Versed drips. Daily sedation vacation CV: Essential hypertension Initial troponin 0.02. EKG unremarkable As needed labetalol, hydralazine Nitropaste for hypertension Resp: Acute respiratory failure Obstructive sleep apnea PRVC Ventilation bundle Head of bed at 30 degrees Albuterol/ipratropium aerosols every 4 hours with albuterol aerosols every 2 as needed dyspnea Follow-up on a.m. chest x-ray Spontaneous breathing trial/CPAP trials when clinically indicated Chest x-ray cardiopulmonary findings GI: History of gastric bypass Gastroesophageal reflux disease Continue tube feedings with vital 1.5 goal 55 cc an hour Lansoprazole for GI prophylaxis. Patient is on ranitidine 150 mg daily at home Docusate serum/senna 1 tablet twice daily for bowel regimen : Straight catheterization as needed. Okay to remove Olivas catheter. Periwick might be an alternative Endo: Check TSH -0.4 Aspart low regimen every 6 hours sliding scale insulin Accu-Cheks to maintain euglycemia Renal: Creatinine currently within normal limits Monitor urine output Accurate I's and O's Heme: Leukocytosis Monitor CBC daily. Follow trends. No indication for transfusion of blood products at this time ID: Blood cultures x2, sputum and UA pending. Influenza a and B negative Currently on piperacillin/tazobactam vancomycin day #1 FEN: Replace electrolytes as clinically indicated per ICU likely protocol Recheck a.m. laboratories MSK: Chronic low back pain Elevated BMI of 40 PT evaluate and treat Weight loss encouraged Access -Utilize peripheral IV. Central line if indicated Prophylaxis -GI -lansoprazole -DVT -SCD/heparin subcu Level 3 follow-up Code Status: Full code
[2018-10-09] MEDS ORDERED: Potassium Chloride 25 MEQ Effervescent Tablet PO ONE (09:15)
[2018-10-09] MEDS: Piperacil/Tazo 4.5 GM Premix 4.5 GM/100 ML BAG IV.SIG SCH ×3 (09:24→21:52)
[2018-10-09] MEDS: Vancomycin Inj 1,750 MG in Sodium Chlor 0.9% Inj 500 ML IV.SIG SCH ×2 (12:29→23:38)
[2018-10-09 15:32] LABS: Bacteria,Urine Many /hpf; Bilirubin,Urine Negative (Negative); Clarity,Urine Cloudy (Clear); Color,Urine Yellow (Yellw/Straw); Glucose,Urine (UA) Negative (Negative); Leukocyte Esterase,Urine Moderate (Negative); Mucus,Urine Few /lpf (Occasional); Nitrite,Urine Negative (Negative); Squamous Epithelial Cell,Urine 1 /hpf (0-5)
--- NOTE | 2018-10-09 17:41 | US ---
EXAM DATE: 10/09/2018 5:33 PM EST AGE/SEX: 53 years / Female INDICATIONS: Left leg swelling. CLINICAL DATA: This is the patient's initial encounter. Patient reports that signs and symptoms have been present for 1 day and indicates a pain score of 0/10. MEDICAL/SURGICAL HISTORY: . Left arm fracture. Chronic back pain. Degenerative disc disease, th oracic. Sleep Apnea. Gastric bypass. Left Carpal tunnel Surgery. COMPARISON: No prior exams available for comparison. TECHNIQUE: Venous ultrasound of both lower extremities was performed from the inguinal ligament to t he proximal calf. Real-time, color Doppler and spectral tracing, compression and augmentation techni ques were used. FINDINGS: Normal compression of the deep venous system from the inguinal region to the proximal calf . No echogenic clot is seen. Normal response of the venous system to augmentation and respiration. CONCLUSION: 1. No evidence of DVT. Electronically signed by: Tonio Zamora MD Board Certified Radiologist 10/09/2018 5:40 PM EST
[2018-10-09] MEDS: Carbamide Peroxide 6.5% Otic Drops 15 ML Bottle EACH EAR SCH (20:14)
[2018-10-10] MEDS: Artificial Tears Opth Drops 15 ML Bottle EACH EYE SCH ×3 (01:55→17:49)
[2018-10-10] MEDS: Chlorhexidine Gluconate 2% 1 Pack (2 Cloths) TOPICAL SCH (03:28)
[2018-10-10] MEDS: Piperacil/Tazo 4.5 GM Premix 4.5 GM/100 ML BAG IV.SIG SCH ×4 (03:28→22:00)
[2018-10-10] MEDS: Oral Hygiene Kit OROPHARYNG SCH ×3 (03:28→15:27)
[2018-10-10] MEDS: Propofol 1000 mg/100 ml Inj 1,000 MG/100 ML BOTTLE IV.CONT PRN (05:53)
[2018-10-10] MEDS: Insulin NovoLOG Aspart Correctional Sugar Inj SQ SCH ×3 (05:53→18:21)
[2018-10-10] MEDS: Heparin - SQ 10,000 UNITS/ML Vial SQ SCH ×3 (05:53→22:00)
[2018-10-10 07:39] LABS: Baso % (Auto) 0.1 % (0.0-2.0); Hemoglobin 12.1 gm/dL (11.6-15.3); Lymph # (Auto) 0.8 th/mm3 (1.0-4.8); Lymph % (Auto) 5.9 % (9.0-44.0); Mean Corpuscular HGB Conc 35.6 % (32.0-36.0); Mean Corpuscular Hemoglobin 33.3 pg (27.0-34.0); Mean Corpuscular Volume 93.6 fL (80.0-100.0); Mean Platelet Volume 7.7 fL (7.0-11.0); Mono # (Auto) 0.6 th/mm3 (0.0-0.9); Mono % (Auto) 4.9 % (0.0-8.0); Neut # (Auto) 11.6 th/mm3 (1.8-7.7); Neut % (Auto) 89.1 % (16.0-70.0); Platelet Count 219 th/mm3 (150-450); Red Blood Count 3.63 mil/mm3 (4.00-5.30); Red Cell Distribution Width 13.4 % (11.6-17.2)
[2018-10-10 08:02] LABS: Albumin 2.3 g/dL (3.4-5.0); Anion Gap 7 meq/L (5-15); Aspartate Aminotransferase 15 U/L (15-37); Blood Urea Nitrogen 11 mg/dL (7-18); Calcium 7.8 mg/dL (8.5-10.1); Carbon Dioxide 24.5 meq/L (21.0-32.0); Chloride 111 meq/L (98-107); Glomerular Filtration Rate Greater Than 89 mL/min (>89); Glucose,Random 136 mg/dL (74-106); Magnesium 2.2 mg/dL (1.5-2.5); Sodium 142 meq/L (136-145)
[2018-10-10 08:04] LABS: Alanine Aminotransferase 21 U/L (10-53); Alkaline Phosphatase 85 U/L (45-117); Total Protein 6.2 g/dL (6.4-8.2)
[2018-10-10] MEDS: buPROPion 100 MG ER 12 HR Tablet PO SCH ×2 (08:32→22:00)
[2018-10-10] MEDS: Senna/Docusate Sodium 8.6/50 MG Tablet PO SCH ×2 (08:55→22:00)
[2018-10-10] MEDS: Chlorhexidine 0.12% Oral Kit 15 ML UDC OROPHARYNG SCH ×2 (08:56→21:59)
[2018-10-10] MEDS: Carbamide Peroxide 6.5% Otic Drops 15 ML Bottle EACH EAR SCH ×2 (08:56→22:00)
[2018-10-10] MEDS ORDERED: Midazolam Inj 5 MG/ML 1 ML Vial IV.PUSH ONE (09:06)
--- NOTE | 2018-10-10 09:11 | P.PNCC ---
Subjective Subjective Remarks/Hospital Course: 53 year old female comes in by EMS due to altered mental status. Per EMS, she has a morphine pump and was started on a "new diet pill" that she took for the first time today. EMS states that she took the Naltrexone and soon after started to act unlike herself per family. The emergency department the patient was altered and unable to provide any history, became combative and was intubated by ED attending for an airway protection. Per family, patient has multiple adverse reactions to medications. Daughter states she believes mom is withdrawing from opiates due to the Naltrexone. She says she only has a minimal amount of morphine that goes through her pump. Daughter states that her mother took the pill and about an hour later called saying she just didn't feel well. She says she declined from there to the state she is currently in. 10/08: Patient seen and examined. Currently on propofol drip at 50 mcg/kg/min, midazolam drip at 10 mg an hour and fentanyl drip at 100 mg an hour. Withdraws only on the ventilator. Pupils do react. Will attempt sedation vacation same. In interim. Initiate tube feeding will check EEG. Noted CT brain negative. Unable to do MRI brain secondary to spinal stimulator wires 10/09: T-max 102.4. Creatinine 1.8. Copious thick secretions awake today and following commands. Will try spontaneous breathing trials with attempt extubate.. Start of piperacillin/tazobactam and vancomycin SUBJECTIVE: 10/10: T-max 100.5. Currently 99. No cuff leak but will attempt extubation today. Received dexamethasone times 24 hours. Arousable and follows commands. Objective Vital Signs / I&O: Vital Signs 10/09/18 09:17 10/09/18 09:30 10/09/18 10:00 Temperature Pulse Rate 84 96 H 103 H Respiratory Rate 20 17 Blood Pressure 148/78 H 134/69 Pulse Oximetry 100 100 10/09/18 10:30 10/09/18 11:00 10/09/18 11:30 Temperature Pulse Rate 84 88 86 Respiratory Rate 26 H 18 26 H Blood Pressure 139/65 143/65 H 140/64 Pulse Oximetry 100 100 100 10/09/18 11:58 10/09/18 12:00 10/09/18 12:30 Temperature 100.1 F H Pulse Rate 83 81 101 H Respiratory Rate 26 H 27 H 22 Blood Pressure 143/66 H 146/69 H Pulse Oximetry 99 100 100 10/09/18 13:00 10/09/18 13:30 10/09/18 14:00 Temperature Pulse Rate 92 H 100 H 90 Respiratory Rate 27 H 24 25 H Blood Pressure 139/69 151/72 H 137/63 Pulse Oximetry 100 100 100 10/09/18 14:32 10/09/18 15:00 10/09/18 15:05 Temperature Pulse Rate 88 84 75 Respiratory Rate 23 24 17 Blood Pressure 127/58 L 125/56 L Pulse Oximetry 100 100 98 10/09/18 15:09 10/09/18 15:30 10/09/18 16:00 Temperature Pulse Rate 76 78 79 Respiratory Rate Blood Pressure 129/58 L 127/60 Pulse Oximetry 98 95 10/09/18 16:31 10/09/18 17:00 10/09/18 17:06 Temperature 98.8 F Pulse Rate 78 74 73 Respiratory Rate Blood Pressure 112/53 L 120/63 Pulse Oximetry 96 96 10/09/18 17:30 10/09/18 18:00 10/09/18 18:30 Temperature Pulse Rate 80 72 73 Respiratory Rate 18 21 Blood Pressure 124/72 122/56 L 120/57 L Pulse Oximetry 95 94 L 94 L 10/09/18 19:00 10/09/18 19:30 10/09/18 20:00 Temperature 99.3 F Pulse Rate 72 70 68 Respiratory Rate 22 21 33 H Blood Pressure 118/56 L 117/56 L 111/55 L Pulse Oximetry 94 L 93 L 94 L 10/09/18 20:30 10/09/18 20:48 10/09/18 20:50 Temperature Pulse Rate 68 67 Respiratory Rate 46 H 16 16 Blood Pressure 113/75 Pulse Oximetry 96 96 10/09/18 21:00 10/09/18 21:01 10/09/18 21:31 Temperature Pulse Rate 68 70 76 Respiratory Rate 36 H 16 16 Blood Pressure 154/62 H 104/65 Pulse Oximetry 94 L 94 L 93 L 10/09/18 22:00 10/09/18 22:30 10/09/18 23:00 Temperature Pulse Rate 80 87 83 Respiratory Rate 16 24 18 Blood Pressure 108/61 121/66 129/61 Pulse Oximetry 93 L 100 98 10/09/18 23:23 10/09/18 23:30 10/10/18 00:00 Temperature 98.3 F Pulse Rate 94 H 88 91 H Respiratory Rate 18 18 32 H Blood Pressure 132/58 L 116/55 L Pulse Oximetry 96 95 10/10/18 00:30 10/10/18 01:00 10/10/18 01:05 Temperature Pulse Rate 84 80 Respiratory Rate 37 H 41 H 18 Blood Pressure 112/55 L 112/55 L Pulse Oximetry 93 L 94 L 96 10/10/18 01:30 10/10/18 02:00 10/10/18 02:30 Temperature Pulse Rate 69 66 61 Respiratory Rate 33 H 24 23 Blood Pressure 119/56 L 120/56 L 123/58 L Pulse Oximetry 94 L 94 L 94 L 10/10/18 03:00 10/10/18 03:30 10/10/18 04:00 Temperature 98.5 F Pulse Rate 62 67 67 Respiratory Rate 20 17 20 Blood Pressure 124/58 L 129/60 127/58 L Pulse Oximetry 94 L 95 95 10/10/18 04:10 10/10/18 04:11 10/10/18 04:50 Temperature Pulse Rate 64 84 Respiratory Rate 16 16 23 Blood Pressure 133/59 L Pulse Oximetry 95 100 10/10/18 05:00 10/10/18 05:01 10/10/18 05:30 Temperature Pulse Rate 104 H 98 H 92 H Respiratory Rate 29 H 27 H 25 H Blood Pressure 169/69 H 150/87 H Pulse Oximetry 100 98 96 10/10/18 06:00 10/10/18 07:00 10/10/18 08:00 Temperature Pulse Rate 88 64 Respiratory Rate 24 18 11 L Blood Pressure 148/67 H Pulse Oximetry 96 96 Intake & Output 10/09/18 10/10/18 10/10/18 18:59 06:59 18:59 Intake Total 1817.5 / 1817.5 2817.5 / 2817.5 Output Total 1101 / 1101 400 / 400 Balance 716.5 / 716.5 2417.5 / 2417.5 Weight 107 kg Intake: IV 1817.5 / 1817.5 2617.5 / 2617.5 Diprivan 1000 mg/100 ml Inj 1, 200 / 200 000 mg In 100 ml @ 5 MCG/KG/MIN 3.552 mls/hr IV.CONT TITRATE PRN Rx#:[id number] NS Inj 1,000 ML @ 84 mls/hr IV. 1000 / 1000 1700 / 1700 CONT .[id number] [facility] Rx#:[id number] Magnesium Sulfate 1 gm/D5W 100 100 / 100 ml Premix 100 ML @ 100 mls/hr IV.SIG ONCE ONE Rx#:[id number] Zosyn 4.5 GM Premix 4.5 gm In 200 / 200 200 / 200 100 ml @ 200 mls/hr IV.SIG Q6H [facility] Rx#:[id number] Vancomycin Inj 1,750 MG In NS 517.5 / 517.5 517.5 / 517.5 Inj 500 ML @ 250 mls/hr IV.SIG Q12H [facility] Rx#:[id number] Water Bolus Amount 200 / 200 Output: Urine/Stool Mix 1 / 1 Urine Amount (Catheter) 1100 / 1100 400 / 400 Indwelling Urethral Catheter 1100 / 1100 400 / 400 Other: Date of Last Bowel Movement 10/09/18 10/09/18 # Bowel Movements 0 Result Diagrams: 10/10/18 07:15 10/10/18 07:15 Other Results: Microbiology 10/08/18 08:40 Sputum - Endotracheal Gram Stain - Final 10/08/18 08:40 Sputum - Endotracheal Sputum Culture - Preliminary Heavy growth normal respiratory august at 24 hours 10/08/18 11:52 Blood - Peripheral Aerobic Blood Culture - Preliminary No growth in 1 day 10/08/18 11:52 Blood - Peripheral Anaerobic Blood Culture - Preliminary No growth in 1 day 10/08/18 09:41 Blood - Peripheral Aerobic Blood Culture - Preliminary No growth in 1 day 10/08/18 09:41 Blood - Peripheral Anaerobic Blood Culture - Preliminary No growth in 1 day 10/08/18 08:40 Nasal Aspirate Influenza Types A,B Antigen - Final Negative for FLU A and B antigen Infection due to influenza A or B cannot be ruled out since the antigen present in the sample may be below the detection limit of the test. Imaging: Chest X-Ray 10/07/18 17:00 CONCLUSION: No acute findings. Spinal stimulator wires overlie lower thoracic canal. Chest X-Ray 10/07/18 21:44 CONCLUSION: Adequate placement of endotracheal tube. Head CT 10/08/18 00:00 CONCLUSION: No acute intracranial findings. . Venous Doppler Study 10/09/18 00:00 CONCLUSION: 1. No evidence of DVT. Chest X-Ray 10/09/18 06:00 CONCLUSION: 1. Central pulmonary vascular congestion and mild bilateral atelectasis. 2. Nasogastric tube now in place. Objective Remarks: GENERAL: 53-year-old female currently orotracheally intubated SKIN: Warm and dry. No rash HEAD: Atraumatic. Normocephalic. EYES: Pupils equal and round. No scleral icterus. No injection or drainage. ENT: No nasal bleeding or discharge. Mucous membranes pink and moist. NECK: Trachea midline. No JVD. CARDIOVASCULAR: Regular rate and rhythm. S1, S2. No S4. No murmur. Distant heart sounds RESPIRATORY: Diminished breath sounds throughout. No wheezing GASTROINTESTINAL: Abdomen soft, non-tender, obese. Hypoactive bowel sounds appreciated. MUSCULOSKELETAL: Extremities without nonpitting bilateral lower extremity edema. No obvious deformities. NEUROLOGICAL: Currently arousable on the ventilator. Positive gag and cough. Positive corneal reflex. Withdraws to pain all 4 extremity's. Assessment and Plan - Assessment and Plan Plan: Neuro/Psych: Acute encephalopathy unknown etiology Depression/anxiety Insomnia Migraine headaches Spinal stimulator/morphine pump for chronic thoracic DDD/low back pain Patient has a morphine pump in place Patient is on naltrexone 20 mg daily at home.. This is really on hold Patient is on bupropion 100 mg times daily. Continue Patient is on butalbital/acetaminophen/caffeine 1 tablet every 4 hours as needed Holding zolpidem 10 mg at night for insomnia. CT brain on admission revealed no acute intracranial findings Weaning off fentanyl and Versed drips. Attempt extubate today Daily sedation vacation CV: Essential hypertension Initial troponin 0.02. EKG unremarkable As needed labetalol, hydralazine Nitropaste for hypertension Resp: Acute respiratory failure Obstructive sleep apnea PRVC Ventilation bundle Head of bed at 30 degrees Albuterol/ipratropium aerosols every 4 hours with albuterol aerosols every 2 as needed dyspnea Follow-up on a.m. chest x-ray 10/11 Spontaneous breathing trial/CPAP trials when clinically indicated Chest x-ray cardiopulmonary findings GI: History of gastric bypass Gastroesophageal reflux disease Hypoalbuminemia Continue tube feedings with vital 1.5 goal 55 cc an hour Lansoprazole for GI prophylaxis. Patient is on ranitidine 150 mg daily at home Docusate serum/senna 1 tablet twice daily for bowel regimen : Straight catheterization as needed. Okay to remove Olivas catheter. Periwick might be an alternative Endo: Check TSH -0.4 9 3 Aspart low regimen every 6 hours sliding scale insulin Accu-Cheks to maintain euglycemia Renal: Creatinine currently within normal limits Monitor urine output Accurate I's and O's Heme: Leukocytosis Monitor CBC daily. Follow trends. No indication for transfusion of blood products at this time ID: Blood cultures x2, sputum and UA / no growth to date Influenza a and B negative Currently on piperacillin/tazobactam vancomycin day #2 FEN: Replace electrolytes as clinically indicated per ICU likely protocol Recheck a.m. laboratories MSK: Chronic low back pain Elevated BMI of 40 PT evaluate and treat Weight loss encouraged Access -Utilize peripheral IV. Central line if indicated Prophylaxis -GI -lansoprazole -DVT -SCD/heparin subcu Level 3 follow-up Dexamethasone 4 mg IV every 8 hours with history of tracheal ostomy. Will no cuff leak with excellent parameters will attempt extubate to patient with bedside glide scope and medications
[2018-10-10] MEDS ORDERED: RESP: Lidocaine 4% 4 ML Neb Kit NEB PRN (10:17)
[2018-10-10] MEDS ORDERED: Phenol 1.4% 180 ML Spray Bottle OROPHARYNG PRN (10:20)
[2018-10-10] MEDS: Vancomycin Inj 1,750 MG in Sodium Chlor 0.9% Inj 500 ML IV.SIG SCH ×2 (11:12→23:00)
[2018-10-10] MEDS: Sod Chloride 0.9% Inj 1,000 ML IV.CONT SCH ×2 (13:46→14:34)
[2018-10-10] MEDS: Acetaminophen 325 MG Tablet PO PRN (16:49)
[2018-10-11] MEDS: Artificial Tears Opth Drops 15 ML Bottle EACH EYE SCH (01:00)
[2018-10-11] MEDS: Chlorhexidine Gluconate 2% 1 Pack (2 Cloths) TOPICAL SCH (04:00)
--- NOTE | 2018-10-11 04:12 | XR ---
EXAM DATE: 10/11/2018 3:49 AM EST AGE/SEX: 53 years / Female INDICATIONS: Shortness of breath, possible pulmonary disease. CLINICAL DATA: This is the patient's subsequent encounter. Patient reports that signs and symptoms h ave been present for 4 - 6 days and indicates a pain score of Nonresponsive. MEDICAL/SURGICAL HISTORY: . Sleep apnea. Gastric bypass. COMPARISON: [facility], CHEST 1V SINGLE AP, 10/09/2018. . FINDINGS: The heart size is normal. There is increased density seen at the medial right base and to a lesser de gree at the lateral left base. Mid and upper lungs are clear. No effusions are seen. Spinal leads are seen in the lower thoracic spine. CONCLUSION: Bibasilar areas of consolidation or atelectasis being worse on the right. Electronically signed by: Devonte Mendieta MD Board Certified Radiologist 10/11/2018 4:11 AM EST
[2018-10-11 05:03] LABS: Baso % (Auto) 0.1 % (0.0-2.0); Hematocrit 35.3 % (35.0-46.0); Hemoglobin 11.9 gm/dL (11.6-15.3); Lymph # (Auto) 1.2 th/mm3 (1.0-4.8); Lymph % (Auto) 8.7 % (9.0-44.0); Mean Corpuscular HGB Conc 33.8 % (32.0-36.0); Mean Corpuscular Hemoglobin 32.1 pg (27.0-34.0); Mean Platelet Volume 7.8 fL (7.0-11.0); Mono % (Auto) 7.4 % (0.0-8.0); Neut # (Auto) 11.1 th/mm3 (1.8-7.7); Neut % (Auto) 83.8 % (16.0-70.0); Platelet Count 221 th/mm3 (150-450); Red Blood Count 3.71 mil/mm3 (4.00-5.30); Red Cell Distribution Width 13.3 % (11.6-17.2); White Blood Count 13.2 th/mm3 (4.0-11.0)
[2018-10-11 05:27] LABS: Calcium 8.2 mg/dL (8.5-10.1); Carbon Dioxide 24.4 meq/L (21.0-32.0); Magnesium 2.1 mg/dL (1.5-2.5); Potassium 3.7 meq/L (3.5-5.1)
[2018-10-11 05:30] LABS: Phosphorus 2.1 mg/dL (2.5-4.9)
[2018-10-11] MEDS: Sod Chloride 0.9% Inj 1,000 ML IV.CONT SCH (06:56)
[2018-10-11] MEDS: Oral Hygiene Kit OROPHARYNG SCH ×4 (06:57→15:58)
[2018-10-11] MEDS: Insulin NovoLOG Aspart Correctional Sugar Inj SQ SCH ×4 (06:57→18:09)
--- NOTE | 2018-10-11 07:26 | P.PNCC ---
Subjective Subjective Remarks/Hospital Course: 53 year old female comes in by EMS due to altered mental status. Per EMS, she has a morphine pump and was started on a "new diet pill" that she took for the first time today. EMS states that she took the Naltrexone and soon after started to act unlike herself per family. The emergency department the patient was altered and unable to provide any history, became combative and was intubated by ED attending for an airway protection. Per family, patient has multiple adverse reactions to medications. Daughter states she believes mom is withdrawing from opiates due to the Naltrexone. She says she only has a minimal amount of morphine that goes through her pump. Daughter states that her mother took the pill and about an hour later called saying she just didn't feel well. She says she declined from there to the state she is currently in. 10/08: Patient seen and examined. Currently on propofol drip at 50 mcg/kg/min, midazolam drip at 10 mg an hour and fentanyl drip at 100 mg an hour. Withdraws only on the ventilator. Pupils do react. Will attempt sedation vacation same. In interim. Initiate tube feeding will check EEG. Noted CT brain negative. Unable to do MRI brain secondary to spinal stimulator wires 10/09: T-max 102.4. Creatinine 1.8. Copious thick secretions awake today and following commands. Will try spontaneous breathing trials with attempt extubate.. Start of piperacillin/tazobactam and vancomycin 10/10: T-max 100.5. Currently 99. No cuff leak but will attempt extubation today. Received dexamethasone times 24 hours. Arousable and follows commands. SUBJECTIVE: 10/11: Afebrile. Extubated yesterday without complication. On 2 L nasal cannula. Tolerating diet. Okay to transfer to floor today. Objective Vital Signs / I&O: Vital Signs 10/10/18 08:00 10/10/18 09:00 10/10/18 10:00 Temperature Pulse Rate 54 L 75 85 Respiratory Rate 20 20 18 Blood Pressure 141/65 H 140/62 141/64 H Pulse Oximetry 96 97 98 10/10/18 11:00 10/10/18 12:00 10/10/18 13:00 Temperature 98.3 F Pulse Rate 72 95 H 99 H Respiratory Rate 18 17 18 Blood Pressure 149/67 H 133/60 151/65 H Pulse Oximetry 98 95 97 10/10/18 14:00 10/10/18 14:22 10/10/18 15:00 Temperature Pulse Rate 60 69 115 H Respiratory Rate 18 18 17 Blood Pressure 180/76 H 123/58 L Pulse Oximetry 98 96 10/10/18 16:00 10/10/18 17:00 10/10/18 18:00 Temperature Pulse Rate 103 H 103 H 70 Respiratory Rate 18 18 18 Blood Pressure 132/60 151/65 H 167/72 H Pulse Oximetry 98 95 94 L 10/10/18 20:06 10/10/18 23:43 Temperature Pulse Rate 76 67 Respiratory Rate 20 18 Blood Pressure Pulse Oximetry 96 Intake & Output 10/10/18 10/11/18 10/11/18 18:59 06:59 18:59 Intake Total 1817.5 / 1817.5 1000 / 1000 Output Total 450 / 450 Balance 1367.5 / 1367.5 1000 / 1000 Intake: IV 1717.5 / 1717.5 1000 / 1000 NS Inj 1,000 ML @ 84 mls/hr IV. 1000 / 1000 1000 / 1000 CONT .[id number] [facility] Rx#:[id number] Zosyn 4.5 GM Premix 4.5 gm In 200 / 200 100 ml @ 200 mls/hr IV.SIG Q6H [facility] Rx#:[id number] Vancomycin Inj 1,750 MG In NS 517.5 / 517.5 Inj 500 ML @ 250 mls/hr IV.SIG Q12H [facility] Rx#:[id number] Oral 100 / 100 Output: Urine Amount (Catheter) 450 / 450 Indwelling Urethral Catheter 450 / 450 Other: Date of Last Bowel Movement 10/09/18 # Bowel Movements 0 Result Diagrams: 10/11/18 04:44 10/11/18 04:44 Other Results: Microbiology 10/09/18 14:50 Catheterized Urine Urine Culture - Preliminary gram negative rods 10/08/18 08:40 Sputum - Endotracheal Gram Stain - Final 10/08/18 08:40 Sputum - Endotracheal Sputum Culture - Preliminary Streptococcus pneumoniae 10/08/18 11:52 Blood - Peripheral Aerobic Blood Culture - Preliminary No growth in 2 days 10/08/18 11:52 Blood - Peripheral Anaerobic Blood Culture - Preliminary No growth in 2 days 10/08/18 09:41 Blood - Peripheral Aerobic Blood Culture - Preliminary No growth in 2 days 10/08/18 09:41 Blood - Peripheral Anaerobic Blood Culture - Preliminary No growth in 2 days Imaging: Chest X-Ray 10/07/18 17:00 CONCLUSION: No acute findings. Spinal stimulator wires overlie lower thoracic canal. Chest X-Ray 10/07/18 21:44 CONCLUSION: Adequate placement of endotracheal tube. Head CT 10/08/18 00:00 CONCLUSION: No acute intracranial findings. . Venous Doppler Study 10/09/18 00:00 CONCLUSION: 1. No evidence of DVT. Chest X-Ray 10/09/18 06:00 CONCLUSION: 1. Central pulmonary vascular congestion and mild bilateral atelectasis. 2. Nasogastric tube now in place. Chest X-Ray 10/11/18 06:00 CONCLUSION: Bibasilar areas of consolidation or atelectasis being worse on the right. Objective Remarks: GENERAL: 53-year-old female currently in bed on nasal cannula no acute distress SKIN: Warm and dry. No rash HEAD: Atraumatic. Normocephalic. EYES: Pupils equal and round. No scleral icterus. No injection or drainage. ENT: No nasal bleeding or discharge. Mucous membranes pink and moist. NECK: Trachea midline. No JVD. CARDIOVASCULAR: Regular rate and rhythm. S1, S2. No S4. No murmur. Distant heart sounds RESPIRATORY: Diminished breath sounds throughout. No wheezing GASTROINTESTINAL: Abdomen soft, non-tender, obese. Hypoactive bowel sounds appreciated. MUSCULOSKELETAL: Extremities without nonpitting bilateral lower extremity edema. No obvious deformities. NEUROLOGICAL: Cranial nerves II through XII grossly intact. Strength is equal and symmetric. Normal sensation. Assessment and Plan - Assessment and Plan Plan: Neuro/Psych: Acute encephalopathy unknown etiology Depression/anxiety Insomnia Migraine headaches Spinal stimulator/morphine pump for chronic thoracic DDD/low back pain Patient has a morphine pump in place Patient is on naltrexone 20 mg daily at home. This is on hold Patient is on bupropion 100 mg 3 times daily. Continue Patient is on butalbital/acetaminophen/caffeine 1 tablet every 4 hours as needed Holding zolpidem 10 mg at night for insomnia. She has never taken this and does not want to take it now. Will try melatonin [address] brain on admission revealed no acute intracranial findings Limit sedatives CV: Essential hypertension Initial troponin 0.02. EKG unremarkable As needed labetalol, hydralazine Nitropaste for hypertension Resp: Acute respiratory failure Obstructive sleep apnea Nasal cannula to maintain saturations greater than equal 92% Incentive spirometry while awake Head of bed at 30 degrees Albuterol/ipratropium aerosols every 4 hours with albuterol aerosols every 2 as needed dyspnea Follow-up on a.m. chest x-ray 10/12 Chest x-ray reveals bilateral lower lobe atelectasis GI: History of gastric bypass Gastroesophageal reflux disease Hypoalbuminemia Advance diet as tolerated Hospital hospital substitution for GERD. Patient is on ranitidine 150 mg daily at home Docusate serum/senna 1 tablet twice daily for bowel regimen : Straight catheterization as needed. Okay to remove Olivas catheter. [place]iwick might be an alternative Endo: Check TSH -0.4 9 3 Aspart low regimen every/at bedtime sliding scale insulin Accu-Cheks to maintain euglycemia Renal: Creatinine currently within normal limits Monitor urine output Accurate I's and O's Heme: Leukocytosis Monitor CBC daily. Follow trends. No indication for transfusion of blood products at this time ID: Gram negative néstor UTI Strep pneumonia Blood cultures x2, no growth. Sputum strep pneumonia and UA 10/08 UA 12/13+ gram-negative rods. No growth to date Influenza a and B negative Currently on piperacillin/tazobactam vancomycin day #3 FEN: Hypophosphatemia Replace electrolytes as clinically indicated per ICU electrolyte protocol 30 mmol potassium phosphate Recheck a.m. laboratories MSK: Chronic low back pain Elevated BMI of 40 PT evaluate and treat Weight loss encouraged Access -Utilize peripheral IV. Central line if indicated Prophylaxis -GI -lansoprazole -DVT -SCD/heparin subcu Level 2 follow-up Stable from critical care medicine standpoint. Assign care to hospitalist in a.m. . Okay to transfer from ICU. Code Status: Full code Discussed Condition With: Patient and . Care plan discussed all questions answered.
[2018-10-11] MEDS: Heparin - SQ 10,000 UNITS/ML Vial SQ SCH ×3 (07:29→21:26)
[2018-10-11] MEDS: Piperacil/Tazo 4.5 GM Premix 4.5 GM/100 ML BAG IV.SIG SCH ×4 (07:30→21:26)
[2018-10-11] MEDS ORDERED: Melatonin 5 MG Tablet PO PRN (07:46)
[2018-10-11] MEDS: Chlorhexidine 0.12% Oral Kit 15 ML UDC OROPHARYNG SCH ×2 (07:52→22:23)
[2018-10-11] MEDS ORDERED: Potassium Phosphate Inj 30 MMOL in Sodium Chlor 0.9% Inj 250 ML IV.SIG ONE (08:30)
[2018-10-11] MEDS: Senna/Docusate Sodium 8.6/50 MG Tablet PO SCH ×2 (08:59→21:26)
[2018-10-11] MEDS: buPROPion 100 MG ER 12 HR Tablet PO SCH ×2 (08:59→22:22)
[2018-10-11] MEDS: Famotidine 20 MG Tablet PO SCH (08:59)
[2018-10-11] MEDS: Carbamide Peroxide 6.5% Otic Drops 15 ML Bottle EACH EAR SCH ×2 (08:59→22:23)
[2018-10-11] MEDS: Acetaminophen 325 MG Tablet PO PRN (10:24)
[2018-10-11] MEDS ORDERED: Pharmacy Ordered Lab Info OTHER ONE ×2 (10:45→22:45)
[2018-10-11] MEDS: Vancomycin Inj 1,750 MG in Sodium Chlor 0.9% Inj 500 ML IV.SIG SCH ×2 (11:49→23:32)
[2018-10-11] MEDS: LEVALBUTEROL NEB ×2 (15:33→22:10)
[2018-10-12] MEDS: LEVALBUTEROL NEB ×3 (03:26→19:25)
[2018-10-12] MEDS: Piperacil/Tazo 4.5 GM Premix 4.5 GM/100 ML BAG IV.SIG SCH ×2 (03:59→09:14)
[2018-10-12] MEDS: Insulin NovoLOG Aspart Correctional Sugar Inj SQ SCH ×3 (04:04→12:17)
[2018-10-12] MEDS: Oral Hygiene Kit OROPHARYNG SCH ×4 (04:04→15:22)
[2018-10-12] MEDS ORDERED: Aluminum/Magnesium/Simethacone Susp 30 ML UDC PO PRN ×2 (04:14→18:13)
[2018-10-12] MEDS: Chlorhexidine Gluconate 2% 1 Pack (2 Cloths) TOPICAL SCH (04:16)
[2018-10-12] MEDS: Heparin - SQ 10,000 UNITS/ML Vial SQ SCH ×3 (06:09→21:43)
[2018-10-12 06:14] LABS: Baso % (Auto) 0.2 % (0.0-2.0); Eos % (Auto) 0.5 % (0.0-4.0); Hematocrit 36.6 % (35.0-46.0); Hemoglobin 12.5 gm/dL (11.6-15.3); Lymph # (Auto) 2.6 th/mm3 (1.0-4.8); Lymph % (Auto) 28.8 % (9.0-44.0); Mean Corpuscular HGB Conc 34.2 % (32.0-36.0); Mean Corpuscular Hemoglobin 32.5 pg (27.0-34.0); Mean Corpuscular Volume 94.9 fL (80.0-100.0); Mean Platelet Volume 7.9 fL (7.0-11.0); Mono # (Auto) 0.8 th/mm3 (0.0-0.9); Mono % (Auto) 9.2 % (0.0-8.0); Neut # (Auto) 5.5 th/mm3 (1.8-7.7); Neut % (Auto) 61.3 % (16.0-70.0); Platelet Count 291 th/mm3 (150-450); Red Blood Count 3.86 mil/mm3 (4.00-5.30); Red Cell Distribution Width 13.3 % (11.6-17.2); White Blood Count 8.9 th/mm3 (4.0-11.0)
--- NOTE | 2018-10-12 06:35 | XR ---
EXAM DATE: 10/12/2018 6:16 AM EST AGE/SEX: 53 years / Female INDICATIONS: Shortness of breath, possible respiratory disease. Cough, congestion. CLINICAL DATA: This is the patient's subsequent encounter. Patient reports that signs and symptoms h ave been present for 4 - 6 days and indicates a pain score of 0/10. MEDICAL/SURGICAL HISTORY: . Sleep apnea. Gastric bypass. Left wrist. COMPARISON: [facility], CHEST 1V SINGLE AP, 10/11/2018. . FINDINGS: The heart size is normal. There is increased density at the bases bilaterally seen at the medial infe rior right base and at the lateral left base. The right base process is more prominent than the left base process. Compared to the prior examination, these findings appear unchanged. Spinal leads are s een over the lower thoracic spine. CONCLUSION: Bibasilar areas of consolidation or atelectasis being worse on the right. Electronically signed by: Devonte Mendieta MD Board Certified Radiologist 10/12/2018 6:34 AM EST
[2018-10-12 06:42] LABS: Calcium 8.4 mg/dL (8.5-10.1); Carbon Dioxide 29.5 meq/L (21.0-32.0); Magnesium 1.9 mg/dL (1.5-2.5); Potassium 3.8 meq/L (3.5-5.1)
[2018-10-12 06:43] LABS: Phosphorus 2.8 mg/dL (2.5-4.9)
[2018-10-12] MEDS: Famotidine 20 MG Tablet PO SCH (09:01)
[2018-10-12] MEDS: Chlorhexidine 0.12% Oral Kit 15 ML UDC OROPHARYNG SCH ×2 (09:01→22:09)
[2018-10-12] MEDS: buPROPion 100 MG ER 12 HR Tablet PO SCH ×2 (09:01→21:41)
[2018-10-12] MEDS: Senna/Docusate Sodium 8.6/50 MG Tablet PO SCH ×2 (09:03→21:42)
[2018-10-12] MEDS: Carbamide Peroxide 6.5% Otic Drops 15 ML Bottle EACH EAR SCH ×2 (09:04→22:09)
[2018-10-12] MEDS: Vancomycin Inj 1,750 MG in Sodium Chlor 0.9% Inj 500 ML IV.SIG SCH (11:49)
--- NOTE | 2018-10-12 12:48 | P.PNIM ---
Subjective Interval history: Feels so much better. Wants to go home soon. No complaints of dysuria or frequency urgency no abdominal pain. Dry cough. No shortness of breath. Physical Exam Vital signs: Last Vital Signs Temp 97.6 F 10/12/18 08:00 Pulse 54 L 10/12/18 08:00 Resp 18 10/12/18 08:00 BP 151/70 H 10/12/18 08:00 Pulse Ox 96 10/12/18 08:00 Intake & Output 10/10/18 10/11/18 10/12/18 10/13/18 06:59 06:59 06:59 06:59 Intake Total 4635.0 / 4635.0 3795.0 / 3795.0 3417.5 / 3417.5 Output Total 1501 / 1501 850 / 850 425 / 425 Balance 3134.0 / 3134.0 2945.0 / 2945.0 2992.5 / 2992.5 Weight 107 kg 107.3 kg 108.4 kg Narrative: GENERAL: This is a well-nourished, obese, well-developed patient, in no apparent distress. CARDIOVASCULAR: Regular rate and rhythm RESPIRATORY: Clear to auscultation. Breath sounds equal bilaterally. No wheezes , rales, or rhonchi. GASTROINTESTINAL: Abdomen soft, non-tender, nondistended. Normal active bowel sounds MUSCULOSKELETAL: Extremities without clubbing, cyanosis, trace edema NEURO: Alert & Oriented x4 to person, place, time, situation. Moves all ext x4 Urinary Catheter Management Indwelling Urethral Catheter: Cath placed during this visit: yes, but has since been removed by the nurse Insertion date: 10/07/18 Insertion time: 23:33 Removal date: 10/11/18 Removal time: 16:30 Results Labs CBC & Chem 7: 10/12/18 05:00 10/12/18 05:00 Labs: Microbiology 10/08/18 08:40 Sputum - Endotracheal Gram Stain - Final 10/08/18 08:40 Sputum - Endotracheal Sputum Culture - Preliminary Streptococcus pneumoniae 10/08/18 11:52 Blood - Peripheral Aerobic Blood Culture - Preliminary No growth in 4 days 10/08/18 11:52 Blood - Peripheral Anaerobic Blood Culture - Preliminary No growth in 4 days 10/08/18 09:41 Blood - Peripheral Aerobic Blood Culture - Preliminary No growth in 4 days 10/08/18 09:41 Blood - Peripheral Anaerobic Blood Culture - Preliminary No growth in 4 days 10/09/18 14:50 Catheterized Urine Urine Culture - Final Escherichia coli Imaging Imaging: Impressions Chest X-Ray 10/12/18 06:00 CONCLUSION: Bibasilar areas of consolidation or atelectasis being worse on the right. Assessment and Plan (1) Toxic encephalopathy: Code(s): G92 - Toxic encephalopathy Status: Acute (2) E-coli UTI: Code(s): N39.0 - Urinary tract infection, site not specified; B96.20 - Unspecified Escherichia coli [E. coli] as the cause of diseases classified elsewhere Status: Acute (3) Streptococcus pneumoniae infection: Code(s): A49.1 - Streptococcal infection, unspecified site Status: Acute Plan 53-year-old white female was admitted for acute altered mental status and had to be intubated by ED for airway protection and now extubated and transferred out of intensive care unit Acute toxic encephalopathy unknown etiology may be med related from taking naltrexone, which has been Discontinued Depression/anxiety -currently on bupropion 100 mg 3 times daily to continue Insomniamelatonin 5 mg p.o. nightly Migraine headaches Spinal stimulator/morphine pump for chronic thoracic DDD/low back pain CT brain on admission revealed no acute intracranial findings Essential hypertension Initial troponin 0.02. EKG unremarkable As needed labetalol, hydralazine Nitropaste for hypertension Acute respiratory failureresolved, now on room air 96% Obstructive sleep apnea Incentive spirometry while awake Head of bed at 30 degrees Albuterol/ipratropium aerosols every 4 hours with albuterol aerosols every 2 as needed dyspnea History of gastric bypass Gastroesophageal reflux disease Hypoalbuminemia Advance diet as tolerated Hospital hospital substitution for GERD. Patient is on ranitidine 150 mg daily at home, Mylanta as needed for any heartburn Docusate serum/senna 1 tablet twice daily for bowel regimen E. coli urinary tract infectionde-escalate IV Zosyn to p.o. Ceftin, discontinue IV vancomycin Leukocytosisnow resolved on antibiotics. Strep pneumonia tracheobronchitisawait final sensitivities transition IV Zosyn to p.o. Ceftin. Blood cultures x2, no growth. Sputum strep pneumonia and UA 10/08 UA 10/09 with E. coli Influenza a and B negative De-escalate piperacillin/tazobactam and vancomycin day #3 to p.o. Ceftin and monitor on oral antibiotics overnight. Hypophosphatemiaresolved Chronic low back pain Morbid obesity elevated BMI greater than 35patient is currently in a weight loss program. PT evaluate and treat Prophylaxis -GI -Pepcid -DVT -SCD/heparin subcu Discharge planning the morning if patient remains stable and final sensitivities is reviewed from sputum cultures.
[2018-10-13] MEDS: LEVALBUTEROL NEB (04:07)
[2018-10-13] MEDS: Oral Hygiene Kit OROPHARYNG SCH ×2 (05:16→05:17)
[2018-10-13] MEDS: Acetaminophen 325 MG Tablet PO PRN (06:20)
[2018-10-13] MEDS: Heparin - SQ 10,000 UNITS/ML Vial SQ SCH (06:21)
[2018-10-13] MEDS: Chlorhexidine 0.12% Oral Kit 15 ML UDC OROPHARYNG SCH (08:54)
[2018-10-13] MEDS: Famotidine 20 MG Tablet PO SCH (08:55)
[2018-10-13] MEDS: Carbamide Peroxide 6.5% Otic Drops 15 ML Bottle EACH EAR SCH (08:56)
[2018-10-13] MEDS: buPROPion 100 MG ER 12 HR Tablet PO SCH (08:56)
[2018-10-13] MEDS: Senna/Docusate Sodium 8.6/50 MG Tablet PO SCH (08:56)
--- NOTE | 2018-10-13 09:59 | P.DS ---
DS: Providers Date of admission: 10/07/18 22:07 Primary care physician: Alfonzo Wall MD Consults: 10/11/18 07:26 Consult to Hospitalist Routine Consulting Provider: Lyndsey Sharpe Reason for Consultation: [place]ly of care in a.m. 10/02. Admission with adverse reaction to naltrexone. Strep pneumonia/gram-negative néstor UTI. Notified:: Service Spoke with:: anastasiya Date Notified:: 10/11/18 Time Notified:: 07:34 Comments:: waiting on back/ra Ordering Provider: IRON Brief History from admission: 53 year old female comes in by EMS due to altered mental status. Per EMS, she has a morphine pump and was started on a "new diet pill" that she took for the first time today. EMS states that she took the Naltrexone and soon after started to act unlike herself per family. The emergency department the patient was altered and unable to provide any history, became combative and was intubated by ED attending for an airway protection. Per family, patient has multiple adverse reactions to medications. Daughter states she believes mom is withdrawing from opiates due to the Naltrexone. She says she only has a minimal amount of morphine that goes through her pump. Daughter states that her mother took the pill and about an hour later called saying she just didn't feel well. She says she declined from there to the state she is currently in. DS: Diagnosis Discharge Diagnosis (1) Toxic encephalopathy: Status: Resolved Diagnosis: Principal (2) E-coli UTI: Status: Acute Diagnosis: Secondary (3) Streptococcus pneumoniae infection: Status: Acute Diagnosis: Secondary (4) Acute respiratory failure: Status: Resolved (5) Obesity (BMI 30-39.9): Status: Chronic DS: Summary 53-year-old white female was admitted for acute altered mental status and had to be intubated by ED for airway protection and admitted to the intensive care unit with the carpet installer service. Her presenting acute toxic encephalopathy could be multifactorial including med related from taking naltrexone which has now been discontinued. She was initially placed on broad-spectrum antibiotics IV Zosyn and vancomycin in the intensive care unit until cultures were finalized. She was restarted on bupropion for her history of depression anxiety. Her Ambien was stopped at home and melatonin was started for insomnia. She was found to have a E. coli urinary tract infection and in a box with de-escalated to p.o. Ceftin. Her sputum cultures show Streptococcus pneumonia with final sensitivities pending. She is now ambulating independently. She did not continue to require oxygen. At this time she will be transitioned home with close follow-up with her primary care physician Dr. Ladarius Couch. Time Spent with Patient Total time spent providing and/or coordinating discharge services: Less than 30 minutes Status at Discharge Functional status at discharge: independent ambulation Overall status at discharge: patient is back to baseline Exam HENMT Head: normocephalic and atraumatic Nose: no nasal discharge and no epistaxis Mouth: moist mucous membranes Eyes Sclera: normal sclerae Pupils: PERRL Neck Neck: trachea midline and no JVD Resp Effort & Inspection: no use of accessory muscles Auscultation: clear to auscultation bilaterally Cardio Rate: regular rate Rhythm: regular rhythm Heart Sounds: no murmurs GI Inspection: non-distended Palpation: soft, no hepatosplenomegaly and nontender Skin General: dry skin (warm) Neuro General: alert and awake Cranial Nerves: other Speech: speech normal Motor: no movement abnormalities noted Extrem General: normal to inspection, no clubbing, no cyanosis and no edema Psych Mood: congruent mood Affect: normal affect Judgment: judgment good Results Labs on day of discharge: Labs from last 24 hours 10/12/18 10/12/18 17:01 12:10 POC Glucose 86 81 Preliminary micro results at discharge 10/08/18 08:40 Sputum Culture - Preliminary Sputum - Endotracheal Streptococcus pneumoniae 10/08/18 11:52 Aerobic Blood Culture - Preliminary Blood - Peripheral No growth in 4 days Anaerobic Blood Culture - Preliminary No growth in 4 days 10/08/18 09:41 Aerobic Blood Culture - Preliminary Blood - Peripheral No growth in 4 days Anaerobic Blood Culture - Preliminary No growth in 4 days Impressions ITS Impressions Head CT 10/08/18 00:00 CONCLUSION: No acute intracranial findings. . Venous Doppler Study 10/09/18 00:00 CONCLUSION: 1. No evidence of DVT. Chest X-Ray 10/12/18 06:00 CONCLUSION: Bibasilar areas of consolidation or atelectasis being worse on the right. Discharge Plan Discharge Disposition Patient Disposition: Discharge Home Discharge Condition Condition: Stable Discharge Order Discharge Orders: Discharge Order (Routine); Ordered 10/13/18 Ordered By: Dalia Coker Physicians Team Primary Care Provider: Alfonzo Wall Attending Provider: Dalia Coker Rxs /Orders / Referrals /Forms Prescriptions: New cefuroxime axetil 500 mg Tablet 500 mg PO Q12HR Qty: 6 RF: 0 Continue bupropion HCl 100 mg Tablet Sustained-Release 12 Hr 100 mg PO BID RF: 0 [id number] [Fioricet] 50-300-40 mg Capsule 1 cap PO Q4H PRN (Reason: Migraine Headache) RF: 0 ranitidine HCl [Zantac] 150 mg Tablet 150 mg PO DAILY RF: 0 Discontinued naltrexone 50 mg Tablet 25 mg PO DAILY RF: 0 zolpidem 10 mg Tablet 10 mg PO HS PRN (Reason: Insomnia) RF: 0 Referrals: Alfonzo Wall MD [Primary Care Provider] - See Instructions (NO ANSWER. PLEASE CALL FOR AN APPOINTMENT WITH DR. WALL ) Discharge Instructions Patient Printed Instructions: Cefuroxime (By mouth), Bacterial Pneumonia (GEN) Post Discharge Care Plan Care Plan Goals: Your Health Problems: E coli UTI, streptococcus pneumonia tracheobronchitis Goals to Promote Your Health: * To prevent worsening of your condition * To maintain your health at the optimal level Directions to Meet Your Goals: * Take your medications as prescribed * Follow your dietary instruction * Follow activity as directed * Keep your appointments as scheduled * Take your immunizations and boosters as scheduled * If your symptoms worsen call your PCP * If no PCP go to Urgent Care or Emergency Room Smoking is dangerous to your health. Avoid second hand smoke. You may reach the 24-hour crisis hotline for domestic abuse at . Status ED Status: Left Department
== END 2018-10-13 10:33 | disposition home or self-care (01) ==
LOC: NEPE 16:53 → NEDA 22:07 → HIMC 10-08 00:15 → N04 10-11 17:57
PROVIDERS: ADMIT Family Medicine; ATTEND Family Medicine
DX: Z91.041 Radiographic dye allergy status; Z98.84 Bariatric surgery status; G47.00 Insomnia, unspecified; J96.00 Acute respiratory failure, unspecified whether with hypoxia or hypercapnia; E66.01 Morbid (severe) obesity due to excess calories; Z68.41 Body mass index [BMI] 40.0-44.9, adult; J15.4 Pneumonia due to other streptococci; F41.9 Anxiety disorder, unspecified; G43.909 Migraine, unspecified, not intractable, without status migrainosus; J40 Bronchitis, not specified as acute or chronic; E88.09 Other disorders of plasma-protein metabolism, not elsewhere classified; B96.20 Unspecified Escherichia coli [E. coli] as the cause of diseases classified elsewhere; I10 Essential (primary) hypertension; T50.7X5A Adverse effect of analeptics and opioid receptor antagonists, initial encounter; F32.9 Major depressive disorder, single episode, unspecified; K21.9 Gastro-esophageal reflux disease without esophagitis; N39.0 Urinary tract infection, site not specified; E83.39 Other disorders of phosphorus metabolism; Z78.1 Physical restraint status; F11.20 Opioid dependence, uncomplicated; E87.6 Hypokalemia; J98.11 Atelectasis; G92 Toxic encephalopathy; Z79.891 Long term (current) use of opiate analgesic; G47.33 Obstructive sleep apnea (adult) (pediatric); Z88.2 Allergy status to sulfonamides; M51.34 Other intervertebral disc degeneration, thoracic region